=== PATIENT | female | born 1985 | race Caucasian/White ===

== ENCOUNTER 2018-10-06 10:32 | Day surgery (SDC) | payer MEDICAID, SELFPAY ==
[2018-10-05 15:54] LABS: Hematocrit 45.4 % (37-47); Hemoglobin 15.4 g/dl (12.0-15.0); Mean Corp Hgb Conc 33.9 g/gl (32-36); Mean Corpuscular Volume 97.2 fL (81-99); Mean Platelet Vol. 10.1 fl (6.2-12.0); Platelet Count 273 K/mm3 (150-450); RBC Distribution Width CV 13.9 % (11.6-14.6); RBC Distribution Width SD 48.4 fl (35.1-43.9); Red Blood Count 4.67 M/mm3 (4.2-5.4); White Blood Count 9.9 K/mm3 (4.4-11.0)
[2018-10-05 16:01] LABS: Scan Indicated on CBC? Y/N NO
[2018-10-05 16:17] LABS: AST(SGOT) 9 U/L (15-37); Alanine Aminotransfer ALT/SGPT 14 U/L (13-56); Albumin, Serum 3.9 g/dL (3.2-5.0); Alkaline Phosphatase 66 U/L (45-117); Bilirubin, Direct 0.12 mg/dL (0.00-0.30); Globulin 3.3 g/dL (2.2-4.2); Protein, Total 7.2 g/dL (6.4-8.2)
[2018-10-05 16:22] LABS: International Normalized Ratio 1.1; Prothrombin Time (Protime)PT. 14.4 SECONDS (11.7-14.9)
[2018-10-05 16:23] LABS: Partial Thromboplast Time 32.6 Seconds (24.1-36.2)
[2018-10-05 16:25] LABS: Pregnancy, Serum, hCG Quali. NEGATIVE Negative (0-9 Nonpreg)
[2018-10-05 16:32] LABS: Thyroid Stim Hormone (TSH) 0.76 uIU/mL (0.358-3.74)
--- NOTE | 2018-10-05 20:14 | HP.PCM_ITS ---
History and Physical Date of Admission: 10/06/18 Surgical History and Physical Martine Liz, a 33 year old female 3 0 1 0 3, presents for LST with filsche clips and distal salpingectomy; removal Mirena IUD; possible excision of incisional endometriosis; D and C, H/S on October 06, 2018 at 7:30. -- Desires Permanent Sterilization; Incisional Endometriosis; Desires IUD Removal; Abnormal Uterine Bleeding -- Bleeding will either be heavy to moderate like her real period, then the next one will be light and a nuisance. Denies other concerns at this time. AUB every two weeks which began . Martine claims it started suddenly and has been present every 2 weeks. It occurs intermittantly. It is located in the vagina. I t is located in the lower abdomen. Martine characterizes the quality bleeding severity is moderate and not improving. Desires permenent sterilization. MEDICATIONS HISTORY: Patient is also takin. Mirena 20 mcg/24 hr (5 years) intrauterine device, As Directed ALLERGIES: NKDA Infections - Chicken pox Illnesses - none Accidents - None Hospitalizations - Childbirth and see surgery none; Review of Systems: GENERAL - Denies fever, or chills SKIN - Denies skin changes EYES - Denies visual changes EARS - Denies difficulty hearing NOSE - Denies nasal congestion or bleeding MOUTH - Denies sore throat or difficulty swallowing NECK - Denies pain or swelling RESPIRATORY - Denies shortness of breath or wheezing CARDIOVASCULAR - Denies palpitations or chest pain GASTROINTESTINAL - Denies nausea, vomiting, diarrhea, constipation GENITOURINARY - Denies dysuria, frequency of urination, incontinence of urine MUSCULOSKELETAL - Denies joint or muscle pain NEUROLOGICAL - Denies localized numbness or weakness PSYCHIATRIC - Denies depression or anxiety ENDOCRINE - Denies heat or cold intolerance, weight loss or gain HEMATO-IMMUNOLOGIC - Denies excesive bleeding with cuts SOCIAL HISTORY: Alcohol Use - RARELY not while Smoking - used to smoke but quit Diet - moderate, balanced diet and caffeine > 2 drinks per day Lifestyle - moderate stress lifestyle and single Exercise - active work Seat Belt Use - always 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 Father: Asthma. Paternal Grandmother: from pancreatic cancer. MENSTRUAL HISTORY: LMP Known?- DefiniteAmount/Duration - 6 days, Regularity - Irregular, Frequency - every 2 weeks days, LMP - 09/25/18, Age Onset Menarche - 14 PAST PREGNANCIES: Total Pregnancies - 4; Full Term Pregnancies - 3; Premature - 0; Abortions, Induced - 0; Abortions, Spontaneous - 1; Ectopics - 0; Multiple Births - 0; Living Children - 3 SURGICAL HISTORY: 1. 07/24/2011 Primary ; Dr Freda Thomas - [facility] 2. 08/01/2017 ; Alberto Corey M.D. - PHYSICAL EXAM BP- 102/72 Sitting, Right arm, regular cuff Weight- 122.28209 lbs Height- 62.75 inch BMI:21.90 CONSTITUTIONAL - NAD, well nourished, and well developed ABDOMEN - Without hepatosplenomegaly, distention, masses, rebound, or guarding; normal bowel sounds; no hernias and 1.5 cm nodule just superior to incision in left midline NEUROLOGICAL - Cranial nerves II-XII grossly intact PSYCHIATRIC - A and O to time, place, person, mood and affect External Genitial Vagina - non-tender without lesions Urethra/Urethral Meatus - non-tender Bladder - non-tender Vagina - vaginal gross are pink and moist without loss of rugae and no evidence of atropy Cervix - without cervical motion tenderness and has normal size and features without evident lesions and IUD string in place Uterus - 5-6 cm in size, mobile and nontender Adnexa - clear without massess or tenderness ASSESSMENT/PLAN: 1. Encounter For Sterilization Wants MIrena removed and tubal done. Has considered this form of control for quite some time. 2. Irregular Menstrual Cycle Likely secondary to Mirena. Offered superimposing OCPs for several months and pt declines. 3. Endometriosis Nos CT scan confirms. If technically feasible at time of tubal will excise if possible along with LST with filche clips, distal salpingectomy, mirena removal, Dx H/S, and D and C. Discussed RBAs and all questions answered.
[2018-10-06] VITALS (7 sets, daily range): BP systolic 107–134; BP diastolic 69–94; PULSE 58–81; RESP 16; TEMP 36.6–37.1; O2SAT 97–100; BMI 22.5
[2018-10-06 11:01] LABS: Internal QC Validated? YES +Cl - CLEAR BKGD; Pregnancy, Urine Negative Negative
--- NOTE | 2018-10-06 12:00 | EMB_PTH ---
PATIENT: BERNARDO BROWN [place] [facility] [facility] [place][id number] AGE/SX: 33/F ROOM: RE10/06/[address]: Dr. Alberto Corey MD : [id number] BED: DIS: 10/06/2018 SPEC #: [id number] RECD: 10/06/18 16:22 STATUS: PARRIS JARON #: [id number] EDWARD: 10/06/18 12:[address]: Alberto Corey DEPT: SURGICAL PATHOLOGY RECD BY: Reese Correa ENTERED: 10/07/18 08:01 SP TYPE: ENDOM BX/C MING DR: MD Alma Rodas, HOUSE WRECKER-C Tissues: A - Endometrium, NOS B - Fallopian tube Procedures: Surgery Specimen Level II Surgery Specimen Level IV HEADER OPERATION: Laparoscopic BTO, Filshie clips, laparoscopic salpingectomy PRE-OP DIAGNOSIS: Sterilization, irregular menstrual cycle, endometriosis TISSUE SUBMITTED: A - Endometrial curettings, B - Bilateral fallopian tubes MICROSCOPIC DIAGNOSIS A. Endometrium, biopsy: Stromal hyperplasia consistent with exogenous hormonal effect. Rare strips of benign superficial endocervix and benign squamous mucosa. Mild chronic endometritis. B. Right and left fallopian tubes, salpingectomies: Two complete segments of fallopian tubes with no pathologic change. AM:rose 10/10/18 MICROSCOPIC DESCRIPTION Slides are reviewed. GROSS DESCRIPTION A - Received in fixative is one container labeled with the patient's name and designated endometrial curettings. The specimen consists of multiple fragments of hemorrhagic mucoid tissue that in aggregate measure 5 x 3 x 0.2 cm. The entire specimen is submitted in two cassettes. B - Received is one container labeled with the patient's name and designated bilateral fallopian tubes. The specimen consists of bilateral fallopian tubes including fimbrial ends measuring 6 cm in length and 0.5 cm in diameter and 5.5 cm in length and 0.6 cm in diameter. Sections do not reveal any mass lesion. The fallopian tubes are not identified as right or left. Sections reveal unremarkable cut surfaces. Electrical Helper sections are submitted in two cassettes with each cassette containing one fallopian tube. / SHEFALI:rose 10/07/18 TC:5 CPT: 12006, 53135 x2
[2018-10-06] MEDS: Ropivacaine 0.5% 30 ML Vial (15:01)
--- NOTE | 2018-10-06 15:03 | PCM.OPRPT ---
Report of Operation Date of Procedure: 10/06/18 Pre-Operative Diagnosis: Abnormal Uterine Bleeding, Cyclic Lower Pelvic Pain, Desires Permanent Sterilization, Desires Mirena IUD Removal Post-Operative Diagnosis: Abnormal Uterine Bleeding, Cyclic Lower Pelvic Pain, Desires Permanent Sterilization, Desires Mirena IUD Removal, Endometrial Polyps, Adhesions Surgery/Procedure Performed:: Diagnostic Hysteroscopy, Mirena IUD Removal, Dilation and Curettage, Diagnostic Laparoscopy, Bilateral Laparoscopic Distal Salpingectomy With Filshie Clip Placement, Lysis of Dense Adhesions Description of Surgical Findings:: Endometrial cavity with Mirena IUD in place which was removed without difficulty. Multiple 0.25-0.5 cm endometrial polyps present. Cervix which protruded to within 3-4 cm of the vaginal opening which would make robotic assisted vaginal hysterectomy possible. Dense adhesions of the uterus to the anterior abdominal wall and adhesions of the omentum to the right anterior abdominal wall. Normal-appearing fallopian tubes and ovaries except for dense adhesions of left fallopian tube to anterior abdominal wall. Normal upper abdomen. bellows assembler: Alma Daley Type of Anesthesia:: General Anesthesiologist: Joseph Corey Specimen's removed: Endometrial curettings, bilateral distal fallopian tubes Drains: None Estimated Blood Loss (mL): Minimal Fluids Replaced: Crystalloid Description of Procedure: Indications: This is a 33 year old patient who has the above diagnosis. She has considered sterilization for quite some time. She is aware of the permanent nature of the procedure, the failure rate of 1-2%, and the availability of other nonpermanent control options. She also understands that there is no guarantee that a D&C will relieve her of the bleeding problems that she has been having in there there is no guarantee that this procedure will help with the pain that she has been having. All questions were answered to reconsider the patient well-informed. Procedure: The patient was taken to the operating room where after induction of general anesthesia, she was placed in the dorsolithotomy position and prepped and draped in the usual sterile fashion. The bladder was drained of approximately 50 cc of clear yellow urine with a catheter. Anterior cervix was grasped with the tenaculum and dilated to about 4-5 mm. A 3 mm hysteroscope was placed in the uterus of the above findings were noted and Mirena IUD removed. Cervix was dilated to about 7-8 mm and uterus was gently curetted removing all contents. Hysteroscope was reinserted and all material was noted to be removed. In the course of the procedure approximately 150 cc of saline distending media was used and virtually all of this was recovered. Conn cannula was placed and attention was turned toward the laparoscopic portion of the procedure. Approximately 25 cc of half percent ropivacaine was injected subumbilically, suprapubically and approximately 10 cm left of the umbilicus. A 5 mm bladeless trocar was placed subumbilically and intraperitoneal placement confirmed. After CO2 insufflation was complete, a 5 mm bladeless trocar was introduced approximately 10 cm left of the umbilicus due to dense adhesions between the uterus and anterior abdominal wall. The above findings were noted and the adhesions were taken down with the Enseal device and the serosal surface of the uterus cauterized with monopolar cautery at a setting of 35 W coagulation. A 7/8 mm port was then placed suprapubically. Each fallopian tube was identified to its fimbriated end and an Enseal device was used to divide the mesosalpinx leaving approximately 1 cm stump of fallopian tube on each side. Filshie clips were placed on the stump of each fallopian tube. The peritoneal cavity and upper abdomen were examined and noted to be normal. FloSeal was used to help with postoperative hemostasis over the surface of the uterus after copiously irrigating the pelvis and uterus and confirming hemostasis. Photographs were taken. Laparoscopic instruments with as much CO2 gas as possible were removed and incisions were closed with interrupted 4-0 Monocryl suture. Steri-Strips were placed across the incision. Patient tolerated procedure well was taken to recovery room in satisfactory condition sponge instrument and needle counts were all reportedly correct. Estimated blood loss for the case was minimal. Specimens to pathology was endometrial curettings, bilateral distal fallopian tubes. Grafts/Implants Used: None - Complications None - Admit VTE Documentation VTE Present on Admission: Yes VTE Mechan Device Prophylaxis: SCD's VTE Pharm Prophylaxis ordered?: No Reason prophylaxis not ordered:: Treatment Not Indicated
--- NOTE | 2018-10-06 15:17 | PCM.DC.TUB ---
Discharge Diet: No Restrictions - Increase fluid intake for the next 48 hours. Discharge Activity: Return to Normal Activity, May Drive - when you are no longer taking pain/narcotic medicines., May Shower, May Take a Tub Bath May resume sexual activity in: 3 weeks Additional Activity Instructions:: Ambulate often the next week after surgery. Nothing in the vagina for 5 days. Call your doctor if your incision/area has: Continuous Slow Oozing, Sudden Increased Bleeding, Increased Pain/ Swelling, Increased Redness, Foul Smelling Discharge Call your doctor if you observe: Fever of 101 or Higher, Inability to urinate, Inability to have a bowel movement, Using more than one pad per hour Allergies/Adverse Reactions: Allergies No Known Allergies Allergy (Verified 09/28/18 09:35) Medications to take at Discharge Oxycodone [Oxyir] 5 mg PO Q6H PRN PRN 7 Days #14 tab 10/06/18 The following prescriptions were given: Oxycodone [Oxyir] 5 mg PO Q6H PRN PRN 7 Days #14 tab PRN Reason: Severe Pain (6-10/10) Orders to be completed after discharge: Type & Screen Time Frame: 10/05/18, Location: None Selected Primary Care Physician: Alma Perez NP-C [Primary Care Provider] - Test Results: Test results from this visit will be discussed in further detail at your follow-up appointment, if applicable. Please Follow Up With: Alberto Corey MD - [phone] When: 2-3 weeks
--- OUTSIDE RECORDS SUMMARY | 2018-12-01 12:37 | XMS RPT_ITS ---
:1985 External Reference #:[id number] Author Organization OHIP Care Team Providers Name Role Phone SHEETS, ILAD Attending Unavailable SHEETS, ILDA Primary Care Unavailable Alberto Corey Attending Unavailable Alberto Corey Referring Unavailable Bharti Avitia Primary Care Unavailable Damir Constantino Consulting Unavailable SOFIA LOUIS Attending Unavailable BHARTI AVITIA ([facility]) Referring Unavailable PROBLEMS PROBLEMS DATE TYPE CONDITION / CODE ATTENDING STATUS SOURCE 10/06/2018 Unknown Z01.818 - Encounter Alberto Corey for other [facility] preprocedural Hospital examination / Repository Z01.818(ICD-10) 10/06/2018 Unknown G89.18 - Other acute Alberto Corey Active [place] postprocedural pain [facility] / G89.18(ICD-10) Hospital Repository PROCEDURES PROCEDURES No Procedure Records FoundRESULTS RESULTS DISCHARGE INSTRUCTION Observed: 10/06/2018 Status: F Source: [place] 3:18 PM [facility] REPOSITORY [facility] Medical Records Department [address] [place] [address] Instructions for Home/Discharge Instructions 10/06/18 1517 MR#: [id number] Acct: [id number] Name: BERNARDO LIZ Rep #: [id number] : 1985 33 From: Alberto Corey MD PCP: MICHAELA MyrickC Status: [facility] [place] Diet: No Restrictions - Increase fluid intake for the next 48 hours. Discharge Activity: Return to Normal Activity, May Drive - when you are no longer taking pain/narcotic medicines., May Shower, May Take a Tub Bath May resume sexual activity in: 3 weeks Additional Activity Instructions:: Ambulate often the next week after surgery. Nothing in the vagina for 5 days. Call your doctor if your incision/area has: Continuous Slow Oozing, Sudden Increased Bleeding, Increased Pain/ Swelling, Increased Redness, Foul Smelling Discharge Call your doctor if you observe: Fever of 101 or Higher, Inability to urinate, Inability to have a bowel movement, Using more than one pad per hour Allergies/Adverse Reactions: Allergies No Known Allergies Allergy (Verified 09/28/18 09:35) Medications to take at Discharge Oxycodone [Oxyir] 5 mg PO Q6H PRN PRN 7 Days #14 tab 10/06/18 The following prescriptions were given: Oxycodone [Oxyir] 5 mg PO Q6H PRN PRN 7 Days #14 tab PRN Reason: Severe Pain (6-10/10) Orders to be completed after discharge: Type AND Screen Time Frame: 10/05/18, Location: None Selected Primary Care Physician: Bharti Avitia NP-C [Primary Care Provider] - Test Results: Test results from this visit will be discussed in further detail at your follow-up appointment, if applicable. Please Follow Up With: Alberto Corey MD - [phone] When: 2-3 weeks 10/06/18 1518 <Electronically signed by Alberto Corey MD> Date Alberto Corey MD CC: RANDI Avitia; Damir Constantino MD OPERATIVE REPORT Observed: 10/06/2018 Status: F Source: [place] 3:17 PM [facility] REPOSITORY [facility] Medical Records Department [address] [place] [address] Operative Report 10/06/18 1503 MR#: [id number] Acct: [id number] Name: BERNARDO LIZ Rep #: [id number] : 1985 33 From: Alberto Corey MD PCP: Bharti Avitia EMERGENCY MAN-C Status: REG [facility] Y Location: [place] [address] Report of Operation Date of Procedure: 10/06/18 Pre-Operative Diagnosis: Abnormal Uterine Bleeding, Cyclic Lower Pelvic Pain, Desires Permanent Sterilization, Desires Mirena IUD Removal Post-Operative Diagnosis: Abnormal Uterine Bleeding, Cyclic Lower Pelvic Pain, Desires Permanent Sterilization, Desires Mirena IUD Removal, Endometrial Polyps, Adhesions Surgery/Procedure Performed:: Diagnostic Hysteroscopy, Mirena IUD Removal, Dilation and Curettage, Diagnostic Laparoscopy, Bilateral Laparoscopic Distal Salpingectomy With Filshie Clip Placement, Lysis of Dense Adhesions Description of Surgical Findings:: Endometrial cavity with Mirena IUD in place which was removed without difficulty. Multiple 0.25-0.5 cm endometrial polyps present. Cervix which protruded to within 3-4 cm of the vaginal opening which would make robotic assisted vaginal hysterectomy possible. Dense adhesions of the uterus to the anterior abdominal wall and adhesions of the omentum to the right anterior abdominal wall. Normal-appearing fallopian tubes and ovaries except for dense adhesions of left fallopian tube to anterior abdominal wall. Normal upper abdomen. supervisor carton and can supply: Bharti Daley Type of Anesthesia:: General Anesthesiologist: Joseph Corey Specimen's removed: Endometrial curettings, bilateral distal fallopian tubes Drains: None Estimated Blood Loss (mL): Minimal Fluids Replaced: Crystalloid Description of Procedure: Indications: This is a 33 year old patient who has the above diagnosis. She has considered sterilization for quite some time. She is aware of the permanent nature of the procedure, the failure rate of 1-2%, and the availability of other nonpermanent control options. She also understands that there is no guarantee that a D AND C will relieve her of the bleeding problems that she has been having in there there is no guarantee that this procedure will help with the pain that she has been having. All questions were answered to reconsider the patient well-informed. Procedure: The patient was taken to the operating room where after induction of general anesthesia, she was placed in the dorsolithotomy position and prepped and draped in the usual sterile fashion. The bladder was drained of approximately 50 cc of clear yellow urine with a catheter. Anterior cervix was grasped with the tenaculum and dilated to about 4-5 mm. A 3 mm hysteroscope was placed in the uterus of the above findings were noted and Mirena IUD removed. Cervix was dilated to about 7-8 mm and uterus was gently curetted removing all contents. Hysteroscope was reinserted and all material was noted to be removed. In the course of the procedure approximately 150 cc of saline distending media was used and virtually all of this was recovered. Conn cannula was placed and attention was turned toward the laparoscopic portion of the procedure. Approximately 25 cc of half percent ropivacaine was injected subumbilically, suprapubically and approximately 10 cm left of the umbilicus. A 5 mm bladeless trocar was placed subumbilically and intraperitoneal placement confirmed. After CO2 insufflation was complete, a 5 mm bladeless trocar was introduced approximately 10 cm left of the umbilicus due to dense adhesions between the uterus and anterior abdominal wall. The above findings were noted and the adhesions were taken down with the Enseal device and the serosal surface of the uterus cauterized with monopolar cautery at a setting of 35 W coagulation. A 7/8 mm port was then placed suprapubically. Each fallopian tube was identified to its fimbriated end and an Enseal device was used to divide the mesosalpinx leaving approximately 1 cm stump of fallopian tube on each side. Filshie clips were placed on the stump of each fallopian tube. The peritoneal cavity and upper abdomen were examined and noted to be normal. FloSeal was used to help with postoperative hemostasis over the surface of the uterus after copiously irrigating the pelvis and uterus and confirming hemostasis. Photographs were taken. Laparoscopic instruments with as much CO2 gas as possible were removed and incisions were closed with interrupted 4-0 Monocryl suture. Steri-Strips were placed across the incision. Patient tolerated procedure well was taken to recovery room in satisfactory condition sponge instrument and needle counts were all reportedly correct. Estimated blood loss for the case was minimal. Specimens to pathology was endometrial curettings, bilateral distal fallopian tubes. Grafts/Implants Used: None - Complications None - Admit VTE Documentation VTE Present on Admission: Yes VTE Mechan Device Prophylaxis: SCD's VTE Pharm Prophylaxis ordered?: No Reason prophylaxis not ordered:: Treatment Not Indicated 10/06/18 3682 <Electronically signed by Alberto Corey MD> Date Alberto Corey MD CC: EMERGENCY MAN-C Bharti Avitia; Damir Constantino MD; Alberto Corey MD Signed ENDOMETRIAL BX/CURETTINGS Observed: 10/06/2018 Status: F Source: [place] 12:00 PM [facility] REPOSITORY Patient: BERNARDO LIZ : 1985 (33/F) Acct Num: [id number] Phys: Madhav PRATHER,Alberto Unit Num: [id number] [place]: [facility] Specimen: [id number] Received: 10/06/18 - 2 Spec Type: ENDOM BX/C TISSUES 1 TISSUES: A. Endometrium, NOS B. Fallopian tube GROSS DESCRIPTION A - Received in fixative is one container labeled with the patient's name and designated endometrial curettings. The specimen consists of multiple fragments of hemorrhagic mucoid tissue that in aggregate measure 5 x 3 x 0.2 cm. The entire specimen is submitted in two cassettes. B - Received is one container labeled with the patient's name and designated bilateral fallopian tubes. The specimen consists of bilateral fallopian tubes including fimbrial ends measuring 6 cm in length and 0.5 cm in diameter and 5.5 cm in length and 0.6 cm in diameter. Sections do not reveal any mass lesion. The fallopian tubes are not identified as right or left. Sections reveal unremarkable cut surfaces. Transfer Car Operator Drier sections are submitted in two cassettes with each cassette containing one fallopian tube. / SJ:rose 10/07/18 TC:5 CPT: 59401, 92804 x2 HEADER OPERATION: Laparoscopic BTO, Filshie clips, laparoscopic salpingectomy PRE-OP DIAGNOSIS: Sterilization, irregular menstrual cycle, endometriosis TISSUE SUBMITTED: A - Endometrial curettings, B - Bilateral fallopian tubes MICROSCOPIC DESCRIPTION Slides are reviewed. MICROSCOPIC DIAGNOSIS A. Endometrium, biopsy: Stromal hyperplasia consistent with exogenous hormonal effect. Rare strips of benign superficial endocervix and benign squamous mucosa. Mild chronic endometritis. B. Right and left fallopian tubes, salpingectomies: Two complete segments of fallopian tubes with no pathologic change. AM:rose 10/10/18 Signed [facility] 10/10/18 <signature on file> Performed By: #### PEMB #### [facility] [address] [place], [address] ,URINE Collected: 10/06/2018 Status: F Source: [place] 10:56 AM [facility] REPOSITORY Order Comment: Reason for Laboratory Test PRE OP TYPE CODE TESTS RESULT OUT OF REFERENCE UNITS RANGE LAB L400.8000 Negative Normal HCGUQUAL Negative Result Comment: Very dilute urine specimens, as indicated by a low specific gravity, may not contain medical device sales representative levels of hCG. If is still suspected, a first morning urine specimen should be collected 48 hours later and tested. Performed By: #### L400.7600 #### [facility] [address] [place], [address] HISTORY AND PHYSICAL Observed: 10/05/2018 Status: F Source: [place] EXAM 8:14 PM [facility] REPOSITORY [facility] Medical Records Department [address] [place] [address] [place] [address] History and Physical 10/05/182011 MR#: [id number] Acct: [id number] Name: BERNARDO LIZ Rep #: [id number] : 1985 33 From: Alberto Corey MD PCP: RANDI Myrick Status: [facility] [place] Location: [facility] History and Physical Date of Admission: 10/06/18 Surgical History and Physical Bernardo Liz, a 33 year old female 3 0 1 0 3, presents for LST with filsche clips and distal salpingectomy; removal Mirena IUD; possible excision of incisional endometriosis; D and C, H/S on October 06, 2018 at 7:30. -- Desires Permanent Sterilization; Incisional Endometriosis; Desires IUD Removal; Abnormal Uterine Bleeding -- Bleeding will either be heavy to moderate like her real period, then the next one will be light and a nuisance. Denies other concerns at this time. AUB every two weeks which began . Bernardo claims it started suddenly and has been present every 2 weeks. It occurs intermittantly. It is located in the vagina. It is located in the lower abdomen. Bernardo characterizes the quality bleeding severity is moderate and not improving. Desires permenent sterilization. MEDICATIONS HISTORY: Patient is also takin. Mirena 20 mcg/24 hr (5 years) intrauterine device, As Directed ALLERGIES: NKDA Infections - Chicken pox Illnesses - none Accidents - None Hospitalizations - Childbirth and see surgery none; Review of Systems: GENERAL - Denies fever, or chills SKIN - Denies skin changes EYES - Denies visual changes EARS - Denies difficulty hearing NOSE - Denies nasal congestion or bleeding MOUTH - Denies sore throat or difficulty swallowing NECK - Denies pain or swelling RESPIRATORY - Denies shortness of breath or wheezing CARDIOVASCULAR - Denies palpitations or chest pain GASTROINTESTINAL - Denies nausea, vomiting, diarrhea, constipation GENITOURINARY - Denies dysuria, frequency of urination, incontinence of urine MUSCULOSKELETAL - Denies joint or muscle pain NEUROLOGICAL - Denies localized numbness or weakness PSYCHIATRIC - Denies depression or anxiety ENDOCRINE - Denies heat or cold intolerance, weight loss or gain HEMATO-IMMUNOLOGIC - Denies excesive bleeding with cuts SOCIAL HISTORY: Alcohol Use - RARELY not while Smoking - used to smoke but quit Diet - moderate, balanced diet and caffeine > 2 drinks per day Lifestyle - moderate stress lifestyle and single Exercise - active work Seat Belt Use - always 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 Father: Asthma. Paternal Grandmother: from pancreatic cancer. MENSTRUAL HISTORY: LMP Known?- DefiniteAmount/Duration - 6 days, Regularity - Irregular, Frequency - every 2 weeks days, LMP - 09/25/18, Age Onset Menarche - 14 PAST PREGNANCIES: Total Pregnancies - 4; Full Term Pregnancies - 3; Premature - 0; Abortions, Induced - 0; Abortions, Spontaneous - 1; Ectopics - 0; Multiple Births - 0; Living Children - 3 SURGICAL HISTORY: 1. 07/24/2011 Primary ; Dr Freda Thomas - breech 2. 08/01/2017 ; Alberto Corey M.D. - PHYSICAL EXAM BP- 102/72 Sitting, Right arm, regular cuff Weight- 122.54667 lbs Height- 62.75 inch BMI:21.90 CONSTITUTIONAL - NAD, well nourished, and well developed ABDOMEN - Without hepatosplenomegaly, distention, masses, rebound, or guarding; normal bowel sounds; no hernias and 1.5 cm nodule just superior to incision in left midline NEUROLOGICAL - Cranial nerves II-XII grossly intact PSYCHIATRIC - A and O to time, place, person, mood and affect External Genitial Vagina - non-tender without lesions Urethra/Urethral Meatus - non-tender Bladder - non-tender Vagina - vaginal gross are pink and moist without loss of rugae and no evidence of atropy Cervix - without cervical motion tenderness and has normal size and features without evident lesions and IUD string in place Uterus - 5-6 cm in size, mobile and nontender Adnexa - clear without massess or tenderness ASSESSMENT/PLAN: 1. Encounter For Sterilization Wants MIrena removed and tubal done. Has considered this form of control for quite some time. 2. Irregular Menstrual Cycle Likely secondary to Mirena. Offered superimposing OCPs for several months and pt declines. 3. Endometriosis Nos CT scan confirms. If technically feasible at time of tubal will excise if possible along with LST with filche clips, distal salpingectomy, mirena removal, Dx H/S, and D and C. Discussed RBAs and all questions answered. 10/05/182013 <Electronically signed by Alberto Corey MD> Date Alberto Corey MD Cosigner Signature: Date (if applicable) CC: EMERGENCY MAN-Yas Avitia; Alberto Corey MD Signed TYPE AND SCREEN Collected: 10/05/2018 Status: F Source: [place] 2:06 PM [facility] REPOSITORY Order Comment: Surgery Date: 10/06/18 Hx of Preganancy in last 3 Months No Ever experience any problems with transfusion(s)? N Hx of Transfusion in last 3 Months N Reason for Type AND Screen/Red Cells: SURGERY SURGICAL PROCEDURE: 47121 98957 68730 TYPE CODE TESTS RESULT OUT OF RANGE REFERENCE UNITS LAB B10.0800 O Normal BLOOD TYPE GEL POSITIVE LAB B100.4000 Normal Antibody NEGATIVE Screen Performed By: #### B101.7475 #### [facility] [address] [place], [place], [id number] CBC-COMPLETE BLOOD CNT Collected: 10/05/2018 Status: F Source: [place] NO DIFF 11:45 AM [facility] REPOSITORY Order Comment: Reason for Laboratory Test PRE OP TYPE CODE TESTS RESULT OUT OF RANGE REFERENCE UNITS LAB L100.1000 4.4-11.0 K/mm3 Normal WBC 9.9 LAB L100.1200 4.2-5.4 M/mm3 Normal RBC 4.67 LAB L100.1300 12.0-15.0 g/dl High HGB 15.4 LAB L100.1400 37-47 % Normal HCT 45.4 LAB L100.1500 81-99 fL Normal MCV 97.2 LAB L100.1600 27.0-32.0 pg High MCH 33.0 LAB L100.1700 32-36 g/gl Normal MCHC 33.9 LAB L100.1810 11.6-14.6 % Normal RDW CV 13.9 LAB L100.1820 35.1-43.9 fl High RDW SD 48.4 LAB L100.1900 150-450 K/mm3 Normal PLT 273 LAB L100.2000 6.2-12.0 fl Normal MPV 10.1 Performed By: #### L100.0500 #### [facility] [address] [place], [place], [id number] LIVER PROFILE Collected: 10/05/2018 Status: F Source: [place] 11:45 AM [facility] REPOSITORY Order Comment: Reason for Laboratory Test PRE OP TYPE CODE TESTS RESULT OUT OF RANGE REFERENCE UNITS LAB L501.1500 6.4-8.2 g/dL Normal T PROT 7.2 LAB L501.1800 3.2-5.0 g/dL Normal ALB 3.9 LAB L501.1950 2.2-4.2 g/dL Normal GLOB 3.3 LAB L501.4100 15-37 U/L Low AST 9 LAB L501.4305 45-117 U/L Normal ALK P 66 LAB L501.4405 13-56 U/L Normal ALT 14 LAB L501.4600 0.20-1.00 mg/dL Normal T BILI 0.40 LAB L501.4700 0.00-0.30 mg/dL Normal D BILI 0.12 Performed By: #### L500.3400 #### [facility] [address] [facility] [place], [place], [address] ,SERUM,HCG QUALI. Collected: Status: F Source: [place] 10/05/2018 11:45 AM [facility] REPOSITORY Order Comment: Reason for Laboratory Test PRE OP TYPE CODE TESTS RESULT OUT OF REFERENCE UNITS RANGE LAB L700.7000 0-9 Nonpreg Negative Normal HCGSQUAL NEGATIVE LAB L700.6700 =>Qualitative mIU/mL Normal HCG Qual < 1 triggr Performed By: #### L700.6800 #### [facility] [address] [facility]. [place], [place], [id number] PROTHROMBIN TIME W/INR Collected: 10/05/2018 Status: F Source: [place] 11:45 AM [facility] REPOSITORY Order Comment: Reason for Laboratory Test PRE OP TYPE CODE TESTS RESULT OUT OF RANGE REFERENCE UNITS LAB L300.4150 11.7-14.9 SECONDS Normal PROTIME 14.4 LAB L300.4200 Normal INR 1.1 Performed By: #### L300.3900, L300.4310 #### [facility] [address] [facility]. [place], [place], [id number] PARTIAL THROMBOPLAST Collected: 10/05/2018 Status: F Source: [place] TIME 11:45 AM [facility] REPOSITORY Order Comment: Reason for Laboratory Test PRE OP TYPE CODE TESTS RESULT OUT OF RANGE REFERENCE UNITS LAB L300.4310 24.1-36.2 Seconds Normal PTT 32.6 Performed By: #### L300.3900, L300.4310 #### [place] [facility] [address] [place], [address] THYROID STIM HORMONE Collected: 10/05/2018 Status: F Source: [place] (TSH) 11:45 AM [facility] REPOSITORY Order Comment: Reason for Laboratory Test PRE OP TYPE CODE TESTS RESULT OUT OF RANGE REFERENCE UNITS LAB L501.9520 0.358-3.74 uIU/mL Normal TSH 0.76 Performed By: #### L501.9520 #### [place] [facility] [address] [place], [address] PROGRESS Observed: 08/06/2018 Status: COMPLETED Source: [place] 9:10 AM [facility] REPOSITORY HNO ID: [id number] Author: Eileen Luke Service: (none) Author Type: Nurse Practitioner Type: Progress Notes Filed: 08/06/2018 9:35 AM Note Text: Subjective The history is provided by the patient. No foreign languages department chair was used. URI She complains of cough. There is no shortness of breath, sputum production or wheezing. This is a new problem. The current episode started in the past 7 days (Wednesday- 3 days ago ). The problem occurs constantly. The problem has been unchanged. The cough is non-productive. Associated symptoms include a fever (100.7 today only ), nasal congestion, rhinorrhea and a sore throat. Pertinent negatives include no ear congestion, ear pain or headaches. Associated symptoms comments: + sick contacts- daughter strep + . Her symptoms are alleviated by nothing. Risk factors for lung disease include smoking/tobacco exposure. There is no history of asthma or COPD. Review of Systems Constitutional: Positive for fever (100.7 today only ). HENT: Positive for rhinorrhea and sore throat. Negative for ear pain. Respiratory: Positive for cough. Negative for sputum production, shortness of breath and wheezing. Neurological: Negative for headaches. HISTORIES PAST MEDICAL HISTORY Diagnosis Date - Acute left otitis media Resolved. - Acute pharyngitis - Cough - Croup Prednisone - Dysuria - Otalgia Resolved. - Other injury of extensor muscle, fascia and tendon of left ring finger at wrist and hand level, subsequent encounter - Pain in left finger(s) - Pain in throat - Upper respiratory infection - Urinary tract infectious disease PAST SURGICAL HISTORY Procedure Laterality Date - SECTION HX 2010 AND 2016 - REPAIR FINGER/HAND TENDON Left 2002 Repair hand tendon, left hand - TONSILLECTOMY HX 1989 FAMILY HISTORY Problem Relation Age of Onset - Breast Cancer Maternal Grandmother - Breast Cancer Maternal Aunt Social History Marital status: Single Spouse name: Years of education: Number of children: Social History Main Topics Smoking status: Current Every Day Smoker Packs/day: 0.00 Years: 0.00 Smokeless tobacco: Never Used Comment: Current smoker; Smoking details Type: cigarette; Pattern of use: Every day smoker; Tobacco reviewed with patient 10/15/2015 Alcohol use: No Drug use: No Other Topics Concern Caffeine Concern Yes Comment:Type: coffee; Amount: minimal (equiv to < 1 8oz coffee/day) No current outpatient prescriptions on file prior to visit. No current facility-administered medications on file prior to visit. ALLERGIES No Known Allergies PAP EVERY 5 YEARS due on 2015 HPV EVERY 5 YEARS due on 2015 INFLUENZA(1) due on 07/09/2018 Objective Physical Exam Constitutional: She is oriented to person, place, and time and well-developed, well-nourished, and in no distress. Vital signs are normal. BP 111/79 Pulse 98 Temp 36.8 ?C (98.3 ?F) (Tympanic) Resp 16 LMP 07/26/2018 (Exact Date) SpO2 98% ? Unknown HENT: Head: Normocephalic. Right Ear: Tympanic membrane, external ear and ear canal normal. Left Ear: Tympanic membrane, external ear and ear canal normal. Nose: Mucosal edema present. Mouth/Throat: Uvula is midline and mucous membranes are normal. Posterior oropharyngeal erythema present. No oropharyngeal exudate, posterior oropharyngeal edema or tonsillar abscesses. Cardiovascular: Normal rate and regular rhythm. Pulmonary/Chest: Effort normal and breath sounds normal. + dry cough noted Lymphadenopathy: She has no cervical adenopathy. Neurological: She is oriented to person, place, and time. Component Latest Ref Rng AND Units 08/06/2018 Rapid Strep neg - pos negative Quality Check yes/no Yes ASSESSMENT/PLAN: 1. Acute upper respiratory infection - ICD9: 465.9, ICD10: J06.9 (primary diagnosis) - Discussed viral etiology and rationale for treatment. - Symptomatic treatment with prn analgesia - Supportive care with fluids and rest - PREDNISONE 20 MG TABLET - BENZONATATE 100 MG CAPSULE - work note written 2. Acute pharyngitis, unspecified etiology - ICD9: 462, ICD10: J02.9 - Rapid Strep negative in the office today - Discussed supportive care treatment with fluids, rest and analgesia. - RAPID STREP TEST B/O- negative - PREDNISONE 20 MG TABLET -pt education along with discharge instructions given to pt -pt agreeable with plan -follow-up if symptoms don't improve in 3-5 days or get worse Eileen Luke APRN.[facility] CNOV Observed: 08/06/2018 Status: COMPLETED Source: [place] 8:55 AM [facility] REPOSITORY Office Visit ([facility]) BERNARDO LIZ ([id number]) 1985 F Date Time Provider Department 08/06/18 8:55 AM EILEEN LUKE ([facility]) [facility] During your visit today, we recorded the following information about you: Temperature Pulse Respiration Blood pressure 98.3 degrees 98/minute 16/minute 111/79 Last Period 07/26/18 [facility] 08/06/2018 9:05 AM Addendum If your symptoms continue or are worsening, please contact your Primary Care Provider for a follow up appointment. Thank you Home going instructions for Upper Respiratory Infections In General: - Drink lots of fluids - at least one gallon of non-caffeinated liquids per day - Make sure you are eating well - Get plenty of rest - at least 8 hours of sleep per night for adults - ibuprofen 600mg every 8 hours as needed for discomfort - acetaminophen 500mg every 4-6 hours as needed for fever and discomfort. - may alternate ibuprofen and acetaminophen For nasal congestion try: -Vaporizers, Neti Pot, humidifiers, hot showers, and hot fluids help open respiratory and sinus passages. - Puako Nasal Azle may offer relief of nasal and head congestion 2-3 times per day as needed. - Sudafed is a safe and effective decongestant for people who do not have high blood pressure. Do not take Sudafed if you have ever been told that you have high blood pressure or hypertension. General dosing guidelines: Immediate release: 60 mg every 4-6 hours; Extended release: 120 mg every 12 hours or 240 mg every 24 hours; maximum: 240 mg/24 hours. For Sore Throat try: - Salt water gargles every 2-3 hours as needed for discomfort - Chloraceptic spray or throat lozenges (Cepacol) For Cough and chest congestion try one of the following: - Mucinex or Robitussin are expectorants. You may take 200- 400 mg every 4 hours to a not to exceed 2,400 mg/day OR Extended release tablet: 600-1200 mg every 12 hours, not to exceed 2,400 mg/day - Delsym is a cough suppressant: Oral: 10-20 mg every 4 hours or 30 mg every 6-8 hours OR Extended release: 60 mg twice daily; maximum: 120 mg/day - If you have high blood pressure or hypertension it is safe to take Coricidin? HBP Cough AND Cold. If you smoke it is advised that you quit smoking. CONTACT YOUR DOCTOR IF: 1. You have fevers for longer than five days or a fever more than 102 degrees 2. You are still sick after 10 days 3. After several days you are getting worse rather than better 4. You develop nausea, vomiting, diarrhea, or a rash. Go to the ER if you - experience pressure or pain in your chest - experience difficulty swallowing - experience difficulty breathing Follow up with your physician in 5-7 days or before if your symptoms get worse. Thank you for coming to [facility] today. I appreciate your confidence in choosing the [facility] for your medical care. Eileen Luke APRN.[facility] [id number] [facility] [phone] Eileen Luke APRN.CNP 08/06/2018 9:35 AM Signed Subjective The history is provided by the patient. No foreign languages department chair was used. URI She complains of cough. There is no shortness of breath, sputum production or wheezing. This is a new problem. The current episode started in the past 7 days (Wednesday- 3 days ago ). The problem occurs constantly. The problem has been unchanged. The cough is non-productive. Associated symptoms include a fever (100.7 today only ), nasal congestion, rhinorrhea and a sore throat. Pertinent negatives include no ear congestion, ear pain or headaches. Associated symptoms comments: + sick contacts- daughter strep + . Her symptoms are alleviated by nothing. Risk factors for lung disease include smoking/tobacco exposure. There is no history of asthma or COPD. Review of Systems Constitutional: Positive for fever (100.7 today only ). HENT: Positive for rhinorrhea and sore throat. Negative for ear pain. Respiratory: Positive for cough. Negative for sputum production, shortness of breath and wheezing. Neurological: Negative for headaches. HISTORIES PAST MEDICAL HISTORY Diagnosis Date - Acute left otitis media Resolved. - Acute pharyngitis - Cough - Croup Prednisone - Dysuria - Otalgia Resolved. - Other injury of extensor muscle, fascia and tendon of left ring finger at wrist and hand level, subsequent encounter - Pain in left finger(s) - Pain in throat - Upper respiratory infection - Urinary tract infectious disease PAST SURGICAL HISTORY Procedure Laterality Date - SECTION HX 2010 AND 2016 - REPAIR FINGER/HAND TENDON Left 2002 Repair hand tendon, left hand - TONSILLECTOMY HX 1989 FAMILY HISTORY Problem Relation Age of Onset - Breast Cancer Maternal Grandmother - Breast Cancer Maternal Aunt Social History Marital status: Single Spouse name: Years of education: Number of children: Social History Main Topics Smoking status: Current Every Day Smoker Packs/day: 0.00 Years: 0.00 Smokeless tobacco: Never Used Comment: Current smoker; Smoking details Type: cigarette; Pattern of use: Every day smoker; Tobacco reviewed with patient 10/15/2015 Alcohol use: No Drug use: No Other Topics Concern Caffeine Concern Yes Comment:Type: coffee; Amount: minimal (equiv to < 1 8oz coffee/day) No current outpatient prescriptions on file prior to visit. No current facility-administered medications on file prior to visit. ALLERGIES No Known Allergies PAP EVERY 5 YEARS due on 2015 HPV EVERY 5 YEARS due on 2015 INFLUENZA(1) due on 07/09/2018 Objective Physical Exam Constitutional: She is oriented to person, place, and time and well-developed, well-nourished, and in no distress. Vital signs are normal. BP 111/79 Pulse 98 Temp 36.8 ?C (98.3 ?F) (Tympanic) Resp 16 LMP 07/26/2018 (Exact Date) SpO2 98% ? Unknown HENT: Head: Normocephalic. Right Ear: Tympanic membrane, external ear and ear canal normal. Left Ear: Tympanic membrane, external ear and ear canal normal. Nose: Mucosal edema present. Mouth/Throat: Uvula is midline and mucous membranes are normal. Posterior oropharyngeal erythema present. No oropharyngeal exudate, posterior oropharyngeal edema or tonsillar abscesses. Cardiovascular: Normal rate and regular rhythm. Pulmonary/Chest: Effort normal and breath sounds normal. + dry cough noted Lymphadenopathy: She has no cervical adenopathy. Neurological: She is oriented to person, place, and time. Component Latest Ref Rng AND Units 08/06/2018 Rapid Strep neg - pos negative Quality Check yes/no Yes ASSESSMENT/PLAN: 1. Acute upper respiratory infection - ICD9: 465.9, ICD10: J06.9 (primary diagnosis) - Discussed viral etiology and rationale for treatment. - Symptomatic treatment with prn analgesia - Supportive care with fluids and rest - PREDNISONE 20 MG TABLET - BENZONATATE 100 MG CAPSULE - work note written 2. Acute pharyngitis, unspecified etiology - ICD9: 462, ICD10: J02.9 - Rapid Strep negative in the office today - Discussed supportive care treatment with fluids, rest and analgesia. - RAPID STREP TEST B/O- negative - PREDNISONE 20 MG TABLET -pt education along with discharge instructions given to pt -pt agreeable with plan -follow-up if symptoms don't improve in 3-5 days or get worse Eileen Luke APRN.DIGITAL MEDIA STRATEGIST Referring Provider: SELF [[id number]] Allergies As of Date: 08/06/2018 (No Known Allergies) Date Reviewed: 08/06/2018 Reviewed by: Mercy Butler - Fully Assessed Reason for Visit: Cough [28] Cmt: 3 days non productive cough chest congestion sore throat runny nose stuffy nose Primary Visit Diagnosis:Acute upper respiratory infection [J06.9] Other Visit Diagnosis:Acute pharyngitis, unspecified etiology [J02.9] Order(s):RAPID STREP TEST B/O [[id number]] Order #: [id number] predniSONE (DELTASONE) 20 mg tabletTake 2 tablets by mouth once daily for 4 days.Disp: 8 tabletRfl: 0 benzonatate (TESSALON PERLE) 100 mg capsuleTake 1 capsule by mouth three times daily as needed.Disp: 15 capsuleRfl: 0 Prescriptions as of 08/06/2018 Sig: PREDNISONE 20 MG TABLET Take 2 tablets by mouth once * BENZONATATE 100 MG CAPSULE Take 1 capsule by mouth three* Problem List As Of Date 08/06/2018 Noted Resolved Posture abnormality [R29.3] INVALID FOR* Acute low back pain with left-sided sciatica [M*INVALID FOR* Other instructions from your clinician: If your symptoms continue or are worsening, please contact your Primary Care Provider for a follow up appointment. Thank you Home going instructions for Upper Respiratory Infections In General: - Drink lots of fluids - at least one gallon of non-caffeinated liquids per day - Make sure you are eating well - Get plenty of rest - at least 8 hours of sleep per night for adults - ibuprofen 600mg every 8 hours as needed for discomfort - acetaminophen 500mg every 4-6 hours as needed for fever and discomfort. - may alternate ibuprofen and acetaminophen For nasal congestion try: -Vaporizers, Neti Pot, humidifiers, hot showers, and hot fluids help open respiratory and sinus passages. - Puako Nasal [place] may offer relief of nasal and head congestion 2-3 times per day as needed. - Sudafed is a safe and effective decongestant for people who do not have high blood pressure. Do not take Sudafed if you have ever been told that you have high blood pressure or hypertension. General dosing guidelines: Immediate release: 60 mg every 4-6 hours; Extended release: 120 mg every 12 hours or 240 mg every 24 hours; maximum: 240 mg/24 hours. For Sore Throat try: - Salt water gargles every 2-3 hours as needed for discomfort - Chloraceptic spray or throat lozenges (Cepacol) For Cough and chest congestion try one of the following: - Mucinex or Robitussin are expectorants. You may take 200-400 mg every 4 hours to a not to exceed 2,400 mg/day OR Extended release tablet: 600-1200 mg every 12 hours, not to exceed 2,400 mg/day - Delsym is a cough suppressant: Oral: 10-20 mg every 4 hours or 30 mg every 6-8 hours OR Extended release: 60 mg twice daily; maximum: 120 mg/day - If you have high blood pressure or hypertension it is safe to take Coricidin? HBP Cough AND Cold. If you smoke it is advised that you quit smoking. CONTACT YOUR DOCTOR IF: 1. You have fevers for longer than five days or a fever more than 102 degrees 2. You are still sick after 10 days 3. After several days you are getting worse rather than better 4. You develop nausea, vomiting, diarrhea, or a rash. Go to the ER if you - experience pressure or pain in your chest - experience difficulty swallowing - experience difficulty breathing Follow up with your physician in 5-7 days or before if your symptoms get worse. Thank you for coming to [facility] today. I appreciate your confidence in choosing the [facility] for your medical care. Eileen Luke APRN.[facility] [address] [place], [place] [phone] Prescriptions ordered this encounter Disp Refills Start End PREDNISONE 20 MG TABLET 8 ta* 0 08/06/2018 08/10/2018 Route: ORAL Sig: Take 2 tablets by mouth once daily for 4 days. BENZONATATE 100 MG CAPSULE 15 c* 0 08/06/2018 Route: ORAL Sig: Take 1 capsule by mouth three times daily as needed. Medications Discontinued During This Encounter cyclobenzaprine (FLEXERIL) 10 mg tab* 30 t* 1 02/25/2018 08/06/2018 Route: ORAL Sig: Take 1 tablet by mouth three times daily. Disc: Course of therapy completed Letter Text Bernardo Liz Eileen Luke APRN.[place] [id number] 08/06/2018 RE: Bernardo Amaury Liz To Whom It May Concern: This is to certify that Bernardo Liz was seen in my office today. Anticipated return to work on or about 08/08/2018; if condition has improved. Please excuse from work on 08/06/2018 AND 08/07/2018 due to acute illness. Please do not hesitate to contact my office at the above phone number if you have any questions or concerns. Sincerely, Eileen Luke APRN.[place] (Electronically signed to expedite mailing) Encounter Status:Closed by EILEEN LUKE CNP on 08/06/18 PROGRESS Observed: 07/21/2018 Status: COMPLETED Source: [place] 12:13 PM [facility] [place] REPOSITORY HNO ID: [id number] Author: Sofia Louis Service: (none) Author Type: Physician Type: Progress Notes Filed: 07/21/2018 12:17 PM Note Text: Consult note PATIENT NAME: Bernardo Liz Assessment ASSESSMENT/PLAN: (N80.9) Endometrioma (primary encounter diagnosis) Bernardo presents with pain over her incision with a palpable mass. This pain occurred with her menstrual cycle. CT scan demonstrates a 1.9 cm lesion just to the left of the midline in her lower abdomen. I explained to Bernardo that this is most consistent with an endometrioma although may represent scar tissue from her . Her pain has resolved. She will continue to monitor this. If the pain continues we can discuss surgical excision. She is comfortable with this plan. She can return to see me as needed. No orders found for this visit on 07/21/18. SUBJECTIVE CHIEF COMPLAINT: Patient presents with: Consult: LLQ Abdominal Mass INTERVAL HISTORY OF PRESENT ILLNESS: Bernardo is a 32-year-old female who presents with a lump at her lower left incision. She noticed this last month with her menstrual cycle and was associated with tenderness. She did have an abnormal cycle at that time. She does have a Mirena in place. A CT scan was performed which showed a mixed attenuation 1.9 cm lesion to the left of the lower midline within her incision. She presents today for surgical evaluation. She does state that she had fluid collection in this area when she had her last year. HISTORIES: PAST MEDICAL HISTORY Diagnosis Date - Acute left otitis media Resolved. - Acute pharyngitis - Cough - Croup Prednisone - Dysuria - Otalgia Resolved. - Other injury of extensor muscle, fascia and tendon of left ring finger at wrist and hand level, subsequent encounter - Pain in left finger(s) - Pain in throat - Upper respiratory infection - Urinary tract infectious disease PAST SURGICAL HISTORY Procedure Laterality Date - SECTION HX 2010 AND 2017 - REPAIR FINGER/HAND TENDON Left 2002 Repair hand tendon, left hand - TONSILLECTOMY HX 1989 ALLERGIES: Patient has no known allergies. MEDICATIONS: Current Outpatient Prescriptions: cyclobenzaprine (FLEXERIL) 10 mg tablet Take 1 tablet by mouth three times daily. No current facility-administered medications for this visit. FAMILY HISTORY Problem Relation Age of Onset - Breast Cancer Maternal Grandmother - Breast Cancer Maternal Aunt Social History Marital status: Single Spouse name: Years of education: Number of children: Social History Main Topics Smoking status: Current Every Day Smoker Packs/day: 0.00 Years: 0.00 Smokeless tobacco: Never Used Comment: Current smoker; Smoking details Type: cigarette; Pattern of use: Every day smoker; Tobacco reviewed with patient 10/15/2015 Alcohol use: No Drug use: No Other Topics Concern Caffeine Concern Yes Comment:Type: coffee; Amount: minimal (equiv to < 1 8oz coffee/day) Reviewed and agreed with Review of Systems completed by the clinical staff. OBJECTIVE PHYSICAL EXAM: BP 128/83 Pulse 87 Ht 5' 2 (1.58m) Wt 122 lb (55.3kg) BMI 22.31 kg/(m2). General: Well developed, well-nourished, in no distress HEENT: Normocephalic, atraumatic. Extraocular movements intact. Sclera are nonicteric. Neck: Supple, no masses, no adenopathy, thyroid is normal Heart: Regular rate and rhythm, no murmur Lungs: Clear to auscultation, without wheezes Abdomen: Soft, non tender, positive bowel sounds, vague mass just to the left of the midline overlying her incision. Nontender. No evidence for infection, no hernia Rectal: Not evaluated Extremities: No edema Neurologic: Alert, oriented, and appropriate. DATA: Diagnostic tests reviewed for today's visit: CT scan was reviewed with the patient today. This demonstrates a 1.9 cm mixed attenuation lesion within the rectus sheath to the left of the midline. Sofia Louis MD PROGRESS Observed: 07/21/2018 Status: COMPLETED Source: [place] 10:41 AM [facility] REPOSITORY HNO ID: [id number] Author: Lauren Aguero LPN Service: (none) Author Type: (none) Type: Progress Notes Filed: 07/21/2018 12:17 PM Note Text: GENERAL:No weight loss, No malaise, No fevers HEENT:Negative for frequent or significant headaches, No changes in hearing or vision, no nose bleeds or other nasal problems CARDIOVASCULAR: Negative for chest pain, Negative for leg swelling, Negative for palpitaions RESPIRATORY:Negative for cough, wheezing or shortness of breath. GASTROINTESTINAL: Negative for abdominal discomfort, Negative for blood in stools, Negative for black stools and Negative for change in bowel habits GENITOURINARY: No history of dysuria, frequency or incontinence. ENDOCRINE: None GLUE MIXER:Denies any concerns GLUE MIXER: Age of first period: 13 Number of pregnancies: 4 Number of live births: 3 Your age at of first child: 22 Your age at start of menopause: N/A Taking hormone replacement: No Family History of Cancer: Breast,Aunt AND Maternal Grandmother. Are you : No MUSCULOSKELETAL: Negative for joint pain or swelling, back pain or muscle pain. NEUROLOGIC:Negative for focal numbness or weakness, headaches and dizziness or syncope. HEMATOLOGIC/LYMPHATIC/IMMUNOLOGIC:Positive for: and Bleeding or bruising tendancy CNOV Observed: 07/21/2018 Status: COMPLETED Source: [place] 10:30 AM [facility] REPOSITORY Office Visit (GENLY[facility]) BERNARDO LIZ ([id number]) 1985 F Date Time Provider Department 07/21/18 10:30 AM [facility] During your visit today, we recorded the following information about you: Pulse Blood pressure Weight Height 87/minute 128/83 55.3 kg 1.575 m Lauren Aguero LPN 07/21/2018 12:17 PM Signed GENERAL:No weight loss, No malaise, No fevers HEENT:Negative for frequent or significant headaches, No changes in hearing or vision, no nose bleeds or other nasal problems CARDIOVASCULAR: Negative for chest pain, Negative for leg swelling, Negative for palpitaions RESPIRATORY:Negative for cough, wheezing or shortness of breath. GASTROINTESTINAL: Negative for abdominal discomfort, Negative for blood in stools, Negative for black stools and Negative for change in bowel habits GENITOURINARY: No history of dysuria, frequency or incontinence. ENDOCRINE: None GLUE MIXER:Denies any concerns GLUE MIXER: Age of first period: 13 Number of pregnancies: 4 Number of live births: 3 Your age at of first child: 22 Your age at start of menopause: N/A Taking hormone replacement: No Family History of Cancer: Breast,Aunt AND Maternal Grandmother. Are you : No MUSCULOSKELETAL: Negative for joint pain or swelling, back pain or muscle pain. NEUROLOGIC:Negative for focal numbness or weakness, headaches and dizziness or syncope. HEMATOLOGIC/LYMPHATIC/IMMUNOLOGIC:Positive for: and Bleeding or bruising tendancy Lauren Aguero LPN 07/21/2018 10:44 AM Signed SMOKING CESSATION Stopping smoking is one of the most important things you can do to protect your current and future health, as well as that of your family. It is an potent risk factor for the future development of coronary artery disease and heart attacks. Smoking is both an addiction and a learned behavior. The nicotine withdrawal takes anywhere from 2-4 weeks and results in symptoms such as irritability, fatigue, insomnia, coughing, dizziness, poor concentration, hunger and cigarette cravings. After the nicotine withdrawal period, the learned linkage between certain acts or situations and cigarette use remain. Strategies to deal with these must be developed along with new behaviors to ensure successful smoking cessation. RESOURCES [facility] Smoking Cessation Appointment Line [facility] [phone]. [place] Tobacco Quit line: National Cancer Foster at http://www.smokefree.gov [place] [employer] at http://www.lungusa.org [employer] at http://www.cancer.org STRATEGIES TOWARD SMOKING CESSATION - Make a list of the reasons why you want to quit, plus the benefits to be gained, and compare them to the reasons why you should continue to smoke. - Pick a specific quit date. - If you are interested in using nicotine patches or gum to assist with the nicotine withdrawal, let your doctor know. - Inform friends, family, and co-workers that you are quitting and when your quit date is. Ask for their understanding and support. - Prepare your environment by removing all cigarettes prior to your quit date. - Prior to your quit date, avoid smoking in places where you spend a lot of time (such as the house, work, car). - From previous quit attempts, identify what helped you to stop smoking. - From previous quit attempts, identify what triggered relapse. How can you avoid that again? - What things (situations, emotions) do you anticipate will be most challenging, especially in the first few weeks, to your quitting effort? - What can you do to address these challenges? - Avoid (or limit) alcohol consumption during the quitting process. - If your spouse or close coworker currently smokes, consider quitting together or at the very least, develop specific plans to maintain your cigarette abstinence while in the home or at work. - Take each day, each hour, each craving, one at a time. Every step or action you take toward smoking cessation is a success. The only failure is the failure to try. - The health of you and your family is worth the effort. STOP SMOKING CHECK LIST Preparing to Quit: ___ Make a personal pact with yourself to quit. ___ Pick a date for quitting completely. (My date to quit is ____.) ___ Write down on a card the three most important reasons for quitting. Carry the card with you from now on. Look at it several times a day. ___ Prior to quitting, eliminate smoking completely in 2 or 3 of your high risk situations. ___ Reduce consumption to one pack per day or less. ___ Change to a less desirable brand of cigarettes. ___ Discard your converter operator. Use matches. Carry your cigarettes in a different place. ___ Spend a little time each day picturing in your mind stressful events occurring in the future and you not smoking. Actual Quitting: The First Two Weeks ___ Get rid of all cigarettes. Put away all smoking related objects such as ashtrays. Ask the people you live with not to smoke in your presence for the first two weeks. ___ Spend as much time as possible with non-smoking people. ___ Keep busy, especially on evenings and weekends. ___ Avoid high risk situations (large parties, bars, etc.). ___ Spend time in places that prohibit or discourage smoking (e.g., theaters, libraries). ___ Drink plenty of fluids. ___ Don't substitute food or sugar based products for cigarettes. Use approved substitutions. (ice water, high bulk/low calorie foods, sugarless gum, mouthwash, brushing teeth) ___ Begin or increase a regular exercise program. ___ When experiencing withdrawal effects: 1. Remind yourself why you are quitting (from your card). 2. Remind yourself that whatever discomfort you are experiencing is only a tiny fraction of the probable discomfort associated with continued smoking. 3. Practice deep breathing or other relaxation techniques. ___ Remind yourself that you can free yourself from this unhealthy, expensive, messy habit and become a non-smoker. Maintenance of Quitting: After two weeks ___ Remind yourself that the desire to smoke is linked to many situations, people and emotional stress. ___ When you do have a desire to smoke, remember that it only lasts a few seconds: distract yourself and leave the situation if necessary. ___ After each desire to smoke has passed, pat yourself on the back, you have just made progress in breaking the habit forever. ___ Save the money on wasted on cigarettes in a special fund and buy yourself something nice. Maintenance of Quitting: After Two Months ___ Be particularly vigilant when unusual life events occur. (weddings, holidays, vacations). ___ Be particularly vigilant when stressful life events occur (relationship, financial or work problems). ___ Remind yourself regularly that not smoking is completely within your personal control. ___ Never lull yourself into thinking you are out of danger and you can safely have a cigarette or two. ___ If you do slip and have one or more cigarettes, do not conclude that you have failed at quitting. Return to complete abstinence immediately and learn from your experience. ___ If you have gained significant weight since quitting, now is the time to do something about it. ___ Each time you see a cigarettes advertisement, remind yourself of why you quit. Also remember that a [employer] industry spends billions of dollars each year trying to get people like yourself re-hooked. Sofia Louis MD 07/21/2018 10:58 AM Signed You have an endometrioma. Monitor the symptoms. Sofia Louis MD 07/21/2018 12:17 PM Signed Consult note PATIENT NAME: Bernardo Liz Assessment ASSESSMENT/PLAN: (N80.9) Endometrioma (primary encounter diagnosis) Bernardo presents with pain over her incision with a palpable mass. This pain occurred with her menstrual cycle. CT scan demonstrates a 1.9 cm lesion just to the left of the midline in her lower abdomen. I explained to Bernardo that this is most consistent with an endometrioma although may represent scar tissue from her . Her pain has resolved. She will continue to monitor this. If the pain continues we can discuss surgical excision. She is comfortable with this plan. She can return to see me as needed. No orders found for this visit on 07/21/18. SUBJECTIVE CHIEF COMPLAINT: Patient presents with: Consult: LLQ Abdominal Mass INTERVAL HISTORY OF PRESENT ILLNESS: Bernardo is a 32-year-old female who presents with a lump at her lower left incision. She noticed this last month with her menstrual cycle and was associated with tenderness. She did have an abnormal cycle at that time. She does have a Mirena in place. A CT scan was performed which showed a mixed attenuation 1.9 cm lesion to the left of the lower midline within her incision. She presents today for surgical evaluation. She does state that she had fluid collection in this area when she had her last year. HISTORIES: PAST MEDICAL HISTORY Diagnosis Date - Acute left otitis media Resolved. - Acute pharyngitis - Cough - Croup Prednisone - Dysuria - Otalgia Resolved. - Other injury of extensor muscle, fascia and tendon of left ring finger at wrist and hand level, subsequent encounter - Pain in left finger(s) - Pain in throat - Upper respiratory infection - Urinary tract infectious disease PAST SURGICAL HISTORY Procedure Laterality Date - SECTION HX 2010 AND 2016 - REPAIR FINGER/HAND TENDON Left 2002 Repair hand tendon, left hand - TONSILLECTOMY HX 1989 ALLERGIES: Patient has no known allergies. MEDICATIONS: Current Outpatient Prescriptions: cyclobenzaprine (FLEXERIL) 10 mg tablet Take 1 tablet by mouth three times daily. No current facility-administered medications for this visit. FAMILY HISTORY Problem Relation Age of Onset - Breast Cancer Maternal Grandmother - Breast Cancer Maternal Aunt Social History Marital status: Single Spouse name: Years of education: Number of children: Social History Main Topics Smoking status: Current Every Day Smoker Packs/day: 0.00 Years: 0.00 Smokeless tobacco: Never Used Comment: Current smoker; Smoking details Type: cigarette; Pattern of use: Every day smoker; Tobacco reviewed with patient 10/15/2015 Alcohol use: No Drug use: No Other Topics Concern Caffeine Concern Yes Comment:Type: coffee; Amount: minimal (equiv to < 1 8oz coffee/day) Reviewed and agreed with Review of Systems completed by the clinical staff. OBJECTIVE PHYSICAL EXAM: BP 128/83 Pulse 87 Ht 5' 2 (1.58m) Wt 122 lb (55.3kg) BMI 22.31 kg/(m2). General: Well developed, well-nourished, in no distress HEENT: Normocephalic, atraumatic. Extraocular movements intact. Sclera are nonicteric. Neck: Supple, no masses, no adenopathy, thyroid is normal Heart: Regular rate and rhythm, no murmur Lungs: Clear to auscultation, without wheezes Abdomen: Soft, non tender, positive bowel sounds, vague mass just to the left of the midline overlying her incision. Nontender. No evidence for infection, no hernia Rectal: Not evaluated Extremities: No edema Neurologic: Alert, oriented, and appropriate. DATA: Diagnostic tests reviewed for today's visit: CT scan was reviewed with the patient today. This demonstrates a 1.9 cm mixed attenuation lesion within the rectus sheath to the left of the midline. Sofia Louis MD Referring Provider: BHARTI AVITIA ([facility]) [[id number]] Allergies As of Date: 07/21/2018 (No Known Allergies) Date Reviewed: 07/21/2018 Reviewed by: Sofia Louis - Fully Assessed Reason for Visit: Consult [173] Cmt: LLQ Abdominal Mass Primary Visit Diagnosis:Endometrioma [N80.9] Prescriptions as of 07/21/2018 Sig: CYCLOBENZAPRINE 10 MG TABLET Take 1 tablet by mouth three * Problem List As Of Date 07/21/2018 Noted Resolved Posture abnormality [R29.3] INVALID FOR* Acute low back pain with left-sided sciatica [M*INVALID FOR* Other instructions from your clinician: You have an endometrioma. Monitor the symptoms. Visit Notes: >> Lauren Aguero CATHY Ena Jul 21, 2018 10:44 AM Status: Signed SMOKING CESSATION Stopping smoking is one of the most important things you can do to protect your current and future health, as well as that of your family. It is an potent risk factor for the future development of coronary artery disease and heart attacks. Smoking is both an addiction and a learned behavior. The nicotine withdrawal takes anywhere from 2-4 weeks and results in symptoms such as irritability, fatigue, insomnia, coughing, dizziness, poor concentration, hunger and cigarette cravings. After the nicotine withdrawal period, the learned linkage between certain acts or situations and cigarette use remain. Strategies to deal with these must be developed along with new behaviors to ensure successful smoking cessation. RESOURCES [facility] Smoking Cessation Appointment Line [facility] [phone]. [place] Tobacco Quit line: National Cancer Foster at http://www.smokefree.gov [place] [employer] at http://www.lungusa.org [employer] at http://www.cancer.org STRATEGIES TOWARD SMOKING CESSATION - Make a list of the reasons why you want to quit, plus the benefits to be gained, and compare them to the reasons why you should continue to smoke. - Pick a specific quit date. - If you are interested in using nicotine patches or gum to assist with the nicotine withdrawal, let your doctor know. - Inform friends, family, and co-workers that you are quitting and when your quit date is. Ask for their understanding and support. - Prepare your environment by removing all cigarettes prior to your quit date. - Prior to your quit date, avoid smoking in places where you spend a lot of time (such as the house, work, car). - From previous quit attempts, identify what helped you to stop smoking. - From previous quit attempts, identify what triggered relapse. How can you avoid that again? - What things (situations, emotions) do you anticipate will be most challenging, especially in the first few weeks, to your quitting effort? - What can you do to address these challenges? - Avoid (or limit) alcohol consumption during the quitting process. - If your spouse or close coworker currently smokes, consider quitting together or at the very least, develop specific plans to maintain your cigarette abstinence while in the home or at work. - Take each day, each hour, each craving, one at a time. Every step or action you take toward smoking cessation is a success. The only failure is the failure to try. - The health of you and your family is worth the effort. STOP SMOKING CHECK LIST Preparing to Quit: ___ Make a personal pact with yourself to quit. ___ Pick a date for quitting completely. (My date to quit is ____.) ___ Write down on a card the three most important reasons for quitting. Carry the card with you from now on. Look at it several times a day. ___ Prior to quitting, eliminate smoking completely in 2 or 3 of your high risk situations. ___ Reduce consumption to one pack per day or less. ___ Change to a less desirable brand of cigarettes. ___ Discard your converter operator. Use matches. Carry your cigarettes in a different place. ___ Spend a little time each day picturing in your mind stressful events occurring in the future and you not smoking. Actual Quitting: The First Two Weeks ___ Get rid of all cigarettes. Put away all smoking related objects such as ashtrays. Ask the people you live with not to smoke in your presence for the first two weeks. ___ Spend as much time as possible with non-smoking people. ___ Keep busy, especially on evenings and weekends. ___ Avoid high risk situations (large parties, bars, etc.). ___ Spend time in places that prohibit or discourage smoking (e.g., theaters, libraries). ___ Drink plenty of fluids. ___ Don't substitute food or sugar based products for cigarettes. Use approved substitutions. (ice water, high bulk/low calorie foods, sugarless gum, mouthwash, brushing teeth) ___ Begin or increase a regular exercise program. ___ When experiencing withdrawal effects: 1. Remind yourself why you are quitting (from your card). 2. Remind yourself that whatever discomfort you are experiencing is only a tiny fraction of the probable discomfort associated with continued smoking. 3. Practice deep breathing or other relaxation techniques. ___ Remind yourself that you can free yourself from this unhealthy, expensive, messy habit and become a non-smoker. Maintenance of Quitting: After two weeks ___ Remind yourself that the desire to smoke is linked to many situations, people and emotional stress. ___ When you do have a desire to smoke, remember that it only lasts a few seconds: distract yourself and leave the situation if necessary. ___ After each desire to smoke has passed, pat yourself on the back, you have just made progress in breaking the habit forever. ___ Save the money on wasted on cigarettes in a special fund and buy yourself something nice. Maintenance of Quitting: After Two Months ___ Be particularly vigilant when unusual life events occur. (weddings, holidays, vacations). ___ Be particularly vigilant when stressful life events occur (relationship, financial or work problems). ___ Remind yourself regularly that not smoking is completely within your personal control. ___ Never lull yourself into thinking you are out of danger and you can safely have a cigarette or two. ___ If you do slip and have one or more cigarettes, do not conclude that you have failed at quitting. Return to complete abstinence immediately and learn from your experience. ___ If you have gained significant weight since quitting, now is the time to do something about it. ___ Each time you see a cigarettes advertisement, remind yourself of why you quit. Also remember that a [employer] industry spends billions of dollars each year trying to get people like yourself re-hooked. Encounter Status:Closed by SOFIA LOUIS MD on 07/21/18 GIRISH Observed: 07/14/2018 Status: COMPLETED Source: [place] 12:00 AM [facility] REPOSITORY Telephone ([employer]) BERNARDO LIZ ([id number]) 1985 F Date Time Provider Department 07/14/18 BHARTI AVITIA CNP During your visit today, we recorded the following information about you: Alberta Collier [facility] 07/14/2018 9:58 AM Signed ----- Message from Bharti Avitia sent at 07/08/2018 4:56 PM EDT ----- WNL. Bharti Avitia APRN.CNP Alberta Collier [facility] 07/14/2018 9:59 AM Signed ----- Message from Bharti Avitia sent at 07/12/2018 7:58 AM EDT ----- IUD in place. Left mass is a soft tissue lesion - may be inflammation or endometriosis. Has appt with GLUE MIXER tomorrow. I would like her to consult with Dr. Corey first, results should have been sent over. Please have her update us after her appt. Thank you. Bharti Avitia APRN.CNP Alberta Collier [facility] 07/14/2018 10:14 AM Signed BASIC METABOLIC PNL Order: [id number] Status: Final result ??Visible to patient: Yes (MyChart) Dx: Left lower quadrant pain; Left lower ... Notes recorded by Bharti Avitia on 07/08/2018 at 4:56 PM EDT WNL. Bharti Avitia APRN.CNP Lm advising pt of lab results. Pt was advised of CT results 07/12/18. 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 Alberta Collier [facility] Yany Doll [facility] 07/18/2018 7:46 AM Signed Patient called and her GLUE MIXER feels she has endometriosis and was referred to a surgeon for further eval. The physician that she was referred to does not take her insurance and they suggested her PCP could suggest another surgeon that she could go to. Please advise. ROMY Jarrett APRN.CNP 07/18/2018 8:17 AM Signed Okay. I recommend Dr. Louis in [place]. See referral. SAMMY Henley APRN.CNP 07/18/2018 8:18 AM Signed Addended by: BHARTI AVITIA CNP on: 07/18/2018 08:18 AM Modules accepted: Orders Albertapadmini Collier CMA 07/19/2018 4:55 PM Signed Pt advised of referral, asked to call us with appnt date. sending to front desk person to process if needed. Alberta ROMY Collier Allergies As of Date: 07/14/2018 (No Known Allergies) Date Reviewed: 07/05/2018 Reviewed by: Bharti Sorenson ([place]) Ana - Fully Assessed Reason for Visit: Results [95] Cmt: labs/CT Primary Visit Diagnosis:Left lower quadrant abdominal mass [R19.04] Order(s):CONSULT TO GENERAL SURGERY [9011] Order #: [id number]: 1 Prescriptions as of 07/14/2018 Sig: CYCLOBENZAPRINE 10 MG TABLET Take 1 tablet by mouth three * Problem List As Of Date 07/14/2018 Noted Resolved Posture abnormality [R29.3] INVALID FOR* Acute low back pain with left-sided sciatica [M*INVALID FOR* Encounter Status:Closed by ALBERTA COLLIER on 07/14/18 CT ABDOMEN AND PELVIS Observed: 07/08/2018 Status: F Source: [employer] [facility] WITH CONTRAST 8:22 PM HEALTH SYSTEM REPOSITORY Performed at [facility] APPROVED BY: DANNY RHODES MD EXAMINATION: CT ABDOMEN AND PELVIS WITH IV CONTRAST CLINICAL HISTORY: Pain and palpable abnormality near scar TECHNIQUE: CT of the abdomen and pelvis was performed using standard technique, scanning from just above the dome of the diaphragm to the symphysis pubis. MQ: CTAP_3 Contrast: IV: 100 ml of Omnipaque 300 Oral: [address] Radiation dose: Integrated Dose-length product (DLP) for this visit = 671 mGy*cm. CT Dose Reduction Employed: Automated exposure control (AEC) was used. COMPARISON: None. RESULT: Liver: No mass. Focal fat is seen adjacent to the falciform ligament in the medial segment of the left lobe of the liver. Biliary: No bile duct dilation. Gallbladder is collapsed. Spleen: No mass. No splenomegaly. Pancreas: No mass or duct dilation. Adrenals: No mass. Kidneys: No mass, calculus or hydronephrosis. GI tract: No dilation or wall thickening. Normal appendix. Lymph nodes: No abdominal or pelvic lymphadenopathy. Mesentery/Peritoneum: No ascites or mass. Retroperitoneum: No mass. Vasculature: The celiac axis and SMA are patent. The portal vein and branches, splenic vein, SMV, and hepatic veins are patent. Normal caliber aorta. Pelvis: IUD in satisfactory position in the uterus. 2.1 cm RIGHT ovarian cyst is likely functional in nature. No ascites or fluid collection. Normal bladder wall thickness. Bones/Soft Tissues: Within the rectus sheath just to the LEFT of midline there is a 1.9 x 1.5 cm mixed attenuation structure, with areas of slightly high attenuation (2:87 and sagittal: 63). No localiz ed fluid collection or gas seen associated with it. No other anterior abdominal wall abnormality. No acute skeletal abnormality. Lower thorax: No acute abnormality IMPRESSION: Small soft tissue attenuation lesion in the rectus sheath just to the LEFT of midline, with areas of high attenuation but no gas or discrete fluid. This expands the rectus sheath at this point. This c ould represent an area of inflammation, exuberant scar formation, or endometriosis. Neoplasm is a less likely consideration. If this does not resolve, aspiration and/or biopsy might be considered No other acute abnormality in the abdomen or pelvis IUD in place CNOV Observed: 07/08/2018 Status: COMPLETED Source: [place] 3:40 PM [facility] REPOSITORY Office Visit (ARDEN) BERNARDO LIZ ([id number]) 1985 F Date Time Provider Department 07/08/18 3:40 PM NURSE RON HER During your visit today, we recorded the following information about you: Respiration Blood pressure 16/minute 100/68 Alberta CollierROMY 07/08/2018 4:25 PM Signed Pt here because she is having some unusual spotting, has mirena and has a CT this afternoon, she is concerned with possibly being . Per conversation with PANFILO I called the pt and had her come in for NV for test. After conversation with [facility] the pt was advised test was negative and it was ok to have CT this afternoon. Alberta Collier CMA Referring Provider: SELF [200] Allergies As of Date: 07/08/2018 (No Known Allergies) Date Reviewed: 07/05/2018 Reviewed by: Bharti Avitia - Fully Assessed Reason for Visit: Nurse Visit [792] Primary Visit Diagnosis:Spotting [N92.0] Order(s):HCG QUAL UR B/O [2108543] Order #: [id number] Prescriptions as of 07/08/2018 Sig: CYCLOBENZAPRINE 10 MG TABLET Take 1 tablet by mouth three * Problem List As Of Date 07/08/2018 Noted Resolved Posture abnormality [R29.3] INVALID FOR* Acute low back pain with left-sided sciatica [M*INVALID FOR* Visit Notes: >> Alberta Collier WedJul 08, 2018 3:45 PM Status: Signed Pt here because she is having some unusual spotting, has mirena and has a CT this afternoon, she is concerned with possibly being . Per conversation with [facility] I called the pt and had her come in for NV for test. After conversation with [facility] the pt was advised test was negative and it was ok to have CT this afternoon. Alberta Collier CMA Encounter Status:Closed by ALBERTA COLLIER on 07/08/18 BASIC PANEL Collected: 07/08/2018 Status: F Source: [facility] 2:42 PM HEALTH SYSTEM REPOSITORY TYPE CODE TESTS RESULT OUT OF REFERENCE UNITS RANGE LAB LOOPING INSPECTOR(LOINC) 136-145 mEq/L Low Sodium Blood 132 LAB LK(LOINC) 3.5-5.1 mEq/L Potassium Blood 3.7 LAB LCL(LOINC) 98-107 mEq/L Chloride Blood 107 LAB LCO2(LOINC 21-32 mEq/L ) CO2 Blood 25 LAB LGLU(LOINC 70-99 mg/dL ) Glucose Blood 92 LAB LBUN(LOINC 7-25 mg/dL ) BUN Blood 12 LAB LCREA(LOIN 0.51-0.95 mg/dL C) Creatinine Blood 0.72 LAB LCA(LOINC) 8.5-10.1 mg/dL Calcium Blood 8.9 LAB LANGP(LOIN 8-20 C) Low Anion Gap 4 LAB LBNCR(LOIN 10-20 C) BUN/Creatinine 17 Ratio Performed By: #### LP8 #### [facility] [address] [place], [place] [address] MDRD EGFR Collected: 07/08/2018 Status: F Source: [facility] 2:42 PM HEALTH SYSTEM REPOSITORY TYPE CODE TESTS RESULT OUT OF RANGE REFERENCE UNITS LAB LGFRF(LOINC >60mL/min/1.73m ) 2 eGFR >60 Result Comment: If the patient is , multiply the result by 1.210. Performed By: #### LGFR #### [facility] [address] [place], [place] [address] PROGRESS Observed: 07/05/2018 Status: COMPLETED Source: [place] 3:06 PM [facility] HNO ID: [id number] Author: Bharti Sorenson (Regulatory Compliance Officer) Ana Service: (none) Author Type: Nurse Practitioner Type: Progress Notes Filed: 07/05/2018 5:24 PM Note Text: Subjective HPI Bernardo Liz is a 32 year old female here today for abdominal pain and bulging. I reviewed past medical, surgical, social, and family histories today and updated chart. Allergies, chronic medications, and supplements were also reviewed. Patient noticed some pain and bulging in her left lower abdomen a couple of months ago. Related it to being stressed but it never got better. She is worried about a hernia. The bulging is right above her incision line. was 11 months ago. 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 Denies specific event that caused pain. Denies feeling a popping sensation. No bruising or redness No numb or tingling Incision is kind of numb, but has been like that since surgery. Has appt GLUE MIXER 07/13 Dr. Corey in [place]. PAST MEDICAL HISTORY Diagnosis Date - Acute left otitis media Resolved. - Acute pharyngitis - Cough - Croup Prednisone - Dysuria - Otalgia Resolved. - Other injury of extensor muscle, fascia and tendon of left ring finger at wrist and hand level, subsequent encounter - Pain in left finger(s) - Pain in throat - Upper respiratory infection - Urinary tract infectious disease PAST SURGICAL HISTORY Procedure Laterality Date - REPAIR FINGER/HAND TENDON Left 2002 Repair hand tendon, left hand - TONSILLECTOMY HX 1989 ALLERGIES Patient has no known allergies. MEDICATIONS iv contrast (will be provided with radiology test) CT ABD/PEL -Inject, intravenously, once for 1 dose.No IV access, insert saline lock prior to the beginning of sedation, infusion, injection of imaging exam. Discontinue saline lock post exam. If Pt. has a central line or IVAD, may access for administration according to line specific nursing protocol. Once exam is complete flush line and de-access according to line specific nursing protocol in the CT contrast administration guidelines link. enteric contrast (will be provided with radiology test) For CT ABD/PEL W IVCON Routine order Administer, As Directed One Time Only, via Oral, Rectal, both Oral and Rectal, Enteric Tube, Stoma or Indwelling Catheter, Enteric Contrast as designated per enteric contrast guidelines cyclobenzaprine (FLEXERIL) 10 mg tablet Take 1 tablet by mouth three times daily. FAMILY HISTORY Problem Relation Age of Onset - None Other Social History Substance Use Topics - Smoking status: Former Smoker - Smokeless tobacco: Never Used Comment: Current smoker; Smoking details Type: cigarette; Pattern of use: Every day smoker; Tobacco reviewed with patient 10/15/2015 - Alcohol use No Review of Systems Constitutional: Negative for chills, diaphoresis, fever, malaise/fatigue and weight loss. HENT: Negative for sore throat. Respiratory: Negative for cough, shortness of breath and wheezing. Cardiovascular: Negative for chest pain, palpitations and leg swelling. Gastrointestinal: Positive for abdominal pain. Negative for blood in stool, constipation, diarrhea, heartburn, nausea and vomiting. Genitourinary: Negative for dysuria, frequency, hematuria and urgency. Musculoskeletal: Negative for myalgias. Skin: Negative for itching and rash. Neurological: Negative for dizziness, tingling, sensory change and weakness. BP 110/64 Pulse 80 Temp 36.9 ?C (98.4 ?F) Resp 16 Ht 162.6 cm (5' 4) Wt 54.4 kg (120 lb) BMI 20.60 kg/m? Objective Physical Exam Constitutional: She is oriented to person, place, and time and well-developed, well-nourished, and in no distress. Non-toxic appearance. Cardiovascular: Normal rate, regular rhythm and normal heart sounds. No murmur heard. Pulmonary/Chest: Effort normal and breath sounds normal. She has no wheezes. She has no rales. Abdominal: Soft. Normal appearance and bowel sounds are normal. She exhibits mass. She exhibits no distension and no abdominal bruit. There is no hepatosplenomegaly. There is tenderness in the left lower quadrant. There is no CVA tenderness. Firm, mobile mass palpated to LLQ just above scar, about 2 inches in diameter, tender. No erythema, surrounding edema, or ecchymosis. Not able to reduce. Neurological: She is oriented to person, place, and time. She has normal motor skills and normal sensation. She displays no weakness. Gait normal. Skin: Skin is warm and dry. No bruising and no rash noted. ASSESSMENT/PLAN: 1. Left lower quadrant pain - ICD9: 789.04, ICD10: R10.32 (primary diagnosis) - CT to evaluate, palpable mass, possible hernia. - Increase fiber in diet and water - Follow up as needed for worsening of symptoms - CT ABD/PEL W IVCON - BASIC METABOLIC PNL 2. Left lower quadrant abdominal mass - ICD9: 789.34, ICD10: R19.04 CT to evaluate F/U as needed She will be seeing her GLUE MIXER that performed the surgery on 07/13/18. May need general surgery referral if hernia confirmed - CT ABD/PEL W IVCON - BASIC METABOLIC PNL Bharti Avitia APRN.BARTOLO CNOV Observed: 07/05/2018 Status: COMPLETED Source: [place] 2:40 PM [facility] REPOSITORY Office Visit (AGFAMPLE) BERNARDO LIZ ([id number]) 1985 F Date Time Provider Department 07/05/18 2:40 PM BHARTI AVITIA (BARTOLO) [place] During your visit today, we recorded the following information about you: Temperature Pulse Respiration Blood pressure 98.4 degrees 80/minute 16/minute 110/64 Weight Height 54.4 kg 1.626 m Alberta Collier CMA 07/05/2018 2:50 PM Signed Pt thinks she has a hernia in her csection scar, noticed a few weeks ago, hurts when she coughs, sneezes, moves. Alberta Collier, [facility] Bharti Avitia, KHUSHBOO.BARTOLO 07/05/2018 5:24 PM Signed Subjective HPI Bernardo Liz is a 32 year old female here today for abdominal pain and bulging. I reviewed past medical, surgical, social, and family histories today and updated chart. Allergies, chronic medications, and supplements were also reviewed. Patient noticed some pain and bulging in her left lower abdomen a couple of months ago. Related it to being stressed but it never got better. She is worried about a hernia. The bulging is right above her incision line. was 11 months ago. 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 Denies specific event that caused pain. Denies feeling a popping sensation. No bruising or redness No numb or tingling Incision is kind of numb, but has been like that since surgery. Has appt GLUE MIXER 07/13 Dr. Corey in [place]. PAST MEDICAL HISTORY Diagnosis Date - Acute left otitis media Resolved. - Acute pharyngitis - Cough - Croup Prednisone - Dysuria - Otalgia Resolved. - Other injury of extensor muscle, fascia and tendon of left ring finger at wrist and hand level, subsequent encounter - Pain in left finger(s) - Pain in throat - Upper respiratory infection - Urinary tract infectious disease PAST SURGICAL HISTORY Procedure Laterality Date - REPAIR FINGER/HAND TENDON Left 2002 Repair hand tendon, left hand - TONSILLECTOMY HX 1989 ALLERGIES Patient has no known allergies. MEDICATIONS iv contrast (will be provided with radiology test) CT ABD/PEL -Inject, intravenously, once for 1 dose.No IV access, insert saline lock prior to the beginning of sedation, infusion, injection of imaging exam. Discontinue saline lock post exam. If Pt. has a central line or IVAD, may access for administration according to line specific nursing protocol. Once exam is complete flush line and de-access according to line specific nursing protocol in the CT contrast administration guidelines link. enteric contrast (will be provided with radiology test) For CT ABD/PEL W IVCON Routine order Administer, As Directed One Time Only, via Oral, Rectal, both Oral and Rectal, Enteric Tube, Stoma or Indwelling Catheter, Enteric Contrast as designated per enteric contrast guidelines cyclobenzaprine (FLEXERIL) 10 mg tablet Take 1 tablet by mouth three times daily. FAMILY HISTORY Problem Relation Age of Onset - None Other Social History Substance Use Topics - Smoking status: Former Smoker - Smokeless tobacco: Never Used Comment: Current smoker; Smoking details Type: cigarette; Pattern of use: Every day smoker; Tobacco reviewed with patient 10/15/2015 - Alcohol use No Review of Systems Constitutional: Negative for chills, diaphoresis, fever, malaise/fatigue and weight loss. HENT: Negative for sore throat. Respiratory: Negative for cough, shortness of breath and wheezing. Cardiovascular: Negative for chest pain, palpitations and leg swelling. Gastrointestinal: Positive for abdominal pain. Negative for blood in stool, constipation, diarrhea, heartburn, nausea and vomiting. Genitourinary: Negative for dysuria, frequency, hematuria and urgency. Musculoskeletal: Negative for myalgias. Skin: Negative for itching and rash. Neurological: Negative for dizziness, tingling, sensory change and weakness. BP 110/64 Pulse 80 Temp 36.9 ?C (98.4 ?F) Resp 16 Ht 162.6 cm (5' 4) Wt 54.4 kg (120 lb) BMI 20.60 kg/m? Objective Physical Exam Constitutional: She is oriented to person, place, and time and well-developed, well-nourished, and in no distress. Non-toxic appearance. Cardiovascular: Normal rate, regular rhythm and normal heart sounds. No murmur heard. Pulmonary/Chest: Effort normal and breath sounds normal. She has no wheezes. She has no rales. Abdominal: Soft. Normal appearance and bowel sounds are normal. She exhibits mass. She exhibits no distension and no abdominal bruit. There is no hepatosplenomegaly. There is tenderness in the left lower quadrant. There is no CVA tenderness. Firm, mobile mass palpated to LLQ just above scar, about 2 inches in diameter, tender. No erythema, surrounding edema, or ecchymosis. Not able to reduce. Neurological: She is oriented to person, place, and time. She has normal motor skills and normal sensation. She displays no weakness. Gait normal. Skin: Skin is warm and dry. No bruising and no rash noted. ASSESSMENT/PLAN: 1. Left lower quadrant pain - ICD9: 789.04, ICD10: R10.32 (primary diagnosis) - CT to evaluate, palpable mass, possible hernia. - Increase fiber in diet and water - Follow up as needed for worsening of symptoms - CT ABD/PEL W IVCON - BASIC METABOLIC PNL 2. Left lower quadrant abdominal mass - ICD9: 789.34, ICD10: R19.04 CT to evaluate F/U as needed She will be seeing her GLUE MIXER that performed the surgery on 07/13/18. May need general surgery referral if hernia confirmed - CT ABD/PEL W IVCON - BASIC METABOLIC PNL Bharti Avitia, KHUSHBOO.DIGITAL MEDIA STRATEGIST Referring Provider: SELF [200] Allergies As of Date: 07/05/2018 (No Known Allergies) Date Reviewed: 07/05/2018 Reviewed by: Bharti Sorenson ([facility]) Ana - Fully Assessed Reason for Visit: Mass [64] Cmt: possible hernia where c section was done Primary Visit Diagnosis:Left lower quadrant pain [R10.32] Other Visit Diagnosis:Left lower quadrant abdominal mass [R19.04] Order(s):CT ABD/PEL W IVCON [[id number]] Order #: [id number] FUTURE iv contrast (will be provided with radiology test)CT ABD/PEL -Inject, intravenously, once for 1 dose.No IV access, insert saline lock prior to the beginning of sedation, infusion, injection of imaging exam. Discontinue saline lock post exam. If Pt. has a central line or IVAD, may access for administration according to line specific nursing protocol. Once exam is complete flush line and de- access according to line specific nursing protocol in the CT contrast administration guidelines link.Disp: 1 EachRfl: 0 enteric contrast (will be provided with radiology test)For CT ABD/PEL W IVCON Routine order Administer, As Directed One Time Only, via Oral, Rectal, both Oral and Rectal, Enteric Tube, Stoma or Indwelling Catheter, Enteric Contrast as designated per enteric contrast guidelinesDisp: 1 EachRfl: 0 BASIC METABOLIC PNL [SQBMP] Order #: [id number] FUTURE Prescriptions as of 07/05/2018 Sig: IV CONTRAST (RADIOLOGY PROCED* CT ABD/PEL -Inject, intraveno* ENTERIC CONTRAST (RADIOLOGY P* For CT ABD/PEL W IVCON Routin* CYCLOBENZAPRINE 10 MG TABLET Take 1 tablet by mouth three * Medication notes this encounter CYCLOBENZAPRINE 10 MG TABLET >> Alberta Collier CMA 07/05/2018 2:47 PM >> ALBERTA COLLIER WedJul 05, 2018 2:47 PM Not taking Problem List As Of Date 07/05/2018 Noted Resolved Posture abnormality [R29.3] INVALID FOR* Acute low back pain with left-sided sciatica [M*INVALID FOR* Visit Notes: >> Alberta (Romy) Amira paula Jul 05, 2018 2:50 PM Status: Signed Pt thinks she has a hernia in her csection scar, noticed a few weeks ago, hurts when she coughs, sneezes, moves. Alberta Collier CMA Prescriptions ordered this encounter Disp Refills Start End IV CONTRAST (RADIOLOGY PROCEDURE) 1 Ea* 0 07/05/2018 07/06/2018 Class: In Office Sig: CT ABD/PEL -Inject, intravenously, once for 1 dose.No IV access, insert saline lock prior to the beginning of sedation, infusion, injection of imaging exam. Discontinue saline lock post exam. If Pt. has a central line or IVAD, may access for administration according to line specific nursing protocol. Once exam is complete flush line and de-access according to line specific nursing protocol in the CT contrast administration guidelines link. ENTERIC CONTRAST (RADIOLOGY PROCEDUR* 1 Ea* 0 07/05/2018 07/06/2018 Class: In Office Sig: For CT ABD/PEL W IVCON Routine order Administer, As Directed One Time Only, via Oral, Rectal, both Oral and Rectal, Enteric Tube, Stoma or Indwelling Catheter, Enteric Contrast as designated per enteric contrast guidelines Disposition: Return if symptoms worsen or fail to improve. Follow-up and Disposition History Recorded Encounter Status:Closed by BHARTI AVITIA CNP on 07/05/18 PROGRESS Observed: 05/05/2018 Status: COMPLETED Source: [place] 8:25 AM [facility] [place] REPOSITORY O ID: [id number] Author: Reyna (Pt) AKANKSHA Ayala Service: (none) Author Type: Physical Therapist Type: Progress Notes Filed: 05/05/2018 8:26 AM Note Text: [facility] REHABILITATION AND SPORTS THERAPY PHYSICAL THERAPY DISCONTINUANCE OF CARE Plan of Care Period: Start of Care Date: 03/04/18 Last Visit Date: 03/10/18 Therapy Program: The following is a summary of the interventions provided for this episode of care; Therapeutic exercise and Therapeutic activities Assessment: Based on most recent visit, patient was progressing slower than expected toward functional goals based on pain levels and appointment compliance. Unable to formally assess goal achievement due to non-compliance with therapy plan of care. Reason for Discontinuation of Care: Patient has not returned to therapy or scheduled additional follow-up appointments. Reyna Ayala, PT PROGRESS Observed: 03/29/2018 Status: COMPLETED Source: [place] 9:30 AM [facility] REPOSITORY HNO ID: [id number] Author: Ilda Garcia Service: (none) Author Type: Physician Type: Progress Notes Filed: 04/09/2018 7:54 AM Note Text: Subjective HPI Pt is here for f/u for back pain. She is feeling better, still in PT. Taking flexeril as needed, no other meds, finished 10 days of naprosyn. Review of Systems Constitutional: Negative for chills, diaphoresis, fever, malaise/fatigue and weight loss. HENT: Negative for ear pain and hearing loss. Eyes: Negative for blurred vision and double vision. Respiratory: Negative for cough and shortness of breath. Cardiovascular: Negative for chest pain, palpitations and leg swelling. Gastrointestinal: Negative for constipation, diarrhea and heartburn. Genitourinary: Negative for dysuria and frequency. Musculoskeletal: Negative for back pain, falls, joint pain and myalgias. Skin: Negative for itching and rash. Neurological: Negative for dizziness, weakness and headaches. Endo/Heme/Allergies: Does not bruise/bleed easily. Psychiatric/Behavioral: Negative for depression and substance abuse. The patient does not have insomnia. Objective BP 110/62 Pulse 72 Temp 36.8 ?C (98.3 ?F) (Oral) Resp 16 Ht 162.6 cm (5' 4) Wt 58.3 kg (128 lb 9.6 oz) BMI 22.07 kg/m? Physical Exam Constitutional: She is oriented to person, place, and time and well-developed, well-nourished, and in no distress. HENT: Mouth/Throat: Normal dentition. Eyes: Conjunctivae, EOM and lids are normal. Pupils are equal, round, and reactive to light. Neck: Normal range of motion and phonation normal. Neck supple. Carotid bruit is not present. No edema present. No thyroid mass and no thyromegaly present. Cardiovascular: Normal rate, regular rhythm, normal heart sounds and intact distal pulses. Exam reveals no gallop and no friction rub. No murmur heard. Pulmonary/Chest: Effort normal and breath sounds normal. She has no wheezes. She has no rales. Abdominal: Soft. Normal appearance and bowel sounds are normal. She exhibits no distension and no mass. There is no tenderness. Musculoskeletal: Normal range of motion. She exhibits no edema or tenderness. Lymphadenopathy: She has no cervical adenopathy. Neurological: She is alert and oriented to person, place, and time. She has normal motor skills. No cranial nerve deficit. Gait normal. Coordination normal. Skin: Skin is warm and dry. No rash noted. No cyanosis or erythema. Nails show no clubbing. Psychiatric: Mood, affect and judgment normal. ASSESSMENT/PLAN: 1. Acute left-sided low back pain with left-sided sciatica - ICD9: 724.2, 724.3, ICD10: M54.42 Resolved - continue exercises, antiinflammatories as needed Ilda Garcia DO CNOV Observed: 03/29/2018 Status: COMPLETED Source: [place] 9:00 AM [facility] REPOSITORY Office Visit (ARDEN) BERNARDO LIZ ([id number]) 1985 F Date Time Provider Department 03/29/18 9:00 AM ILDA GARCIA During your visit today, we recorded the following information about you: Temperature Pulse Respiration Blood pressure 98.3 degrees 72/minute 16/minute 110/62 Weight Height 58.3 kg 1.626 m Yany Doll CMA 03/29/2018 9:21 AM Addendum [employer] Patient here for f/u back pain. patient states doing much better with physical therapy ROMY Jarrett DO 04/09/2018 7:54 AM Signed Subjective HPI Pt is here for f/u for back pain. She is feeling better, still in PT. Taking flexeril as needed, no other meds, finished 10 days of naprosyn. Review of Systems Constitutional: Negative for chills, diaphoresis, fever, malaise/fatigue and weight loss. HENT: Negative for ear pain and hearing loss. Eyes: Negative for blurred vision and double vision. Respiratory: Negative for cough and shortness of breath. Cardiovascular: Negative for chest pain, palpitations and leg swelling. Gastrointestinal: Negative for constipation, diarrhea and heartburn. Genitourinary: Negative for dysuria and frequency. Musculoskeletal: Negative for back pain, falls, joint pain and myalgias. Skin: Negative for itching and rash. Neurological: Negative for dizziness, weakness and headaches. Endo/Heme/Allergies: Does not bruise/bleed easily. Psychiatric/Behavioral: Negative for depression and substance abuse. The patient does not have insomnia. Objective BP 110/62 Pulse 72 Temp 36.8 ?C (98.3 ?F) (Oral) Resp 16 Ht 162.6 cm (5' 4) Wt 58.3 kg (128 lb 9.6 oz) BMI 22.07 kg/m? Physical Exam Constitutional: She is oriented to person, place, and time and well-developed, well-nourished, and in no distress. HENT: Mouth/Throat: Normal dentition. Eyes: Conjunctivae, EOM and lids are normal. Pupils are equal, round, and reactive to light. Neck: Normal range of motion and phonation normal. Neck supple. Carotid bruit is not present. No edema present. No thyroid mass and no thyromegaly present. Cardiovascular: Normal rate, regular rhythm, normal heart sounds and intact distal pulses. Exam reveals no gallop and no friction rub. No murmur heard. Pulmonary/Chest: Effort normal and breath sounds normal. She has no wheezes. She has no rales. Abdominal: Soft. Normal appearance and bowel sounds are normal. She exhibits no distension and no mass. There is no tenderness. Musculoskeletal: Normal range of motion. She exhibits no edema or tenderness. Lymphadenopathy: She has no cervical adenopathy. Neurological: She is alert and oriented to person, place, and time. She has normal motor skills. No cranial nerve deficit. Gait normal. Coordination normal. Skin: Skin is warm and dry. No rash noted. No cyanosis or erythema. Nails show no clubbing. Psychiatric: Mood, affect and judgment normal. ASSESSMENT/PLAN: 1. Acute left-sided low back pain with left-sided sciatica - ICD9: 724.2, 724.3, ICD10: M54.42 Resolved - continue exercises, antiinflammatories as needed Ilda Garcia DO Referring Provider: SELF [200] Allergies As of Date: 03/29/2018 (No Known Allergies) Date Reviewed: 03/29/2018 Reviewed by: Ilda Garcia - Fully Assessed Reason for Visit: Follow Up [171] Primary Visit Diagnosis:Acute left-sided low back pain with left-sided sciatica [M54.42] Prescriptions as of 03/29/2018 Sig: CYCLOBENZAPRINE 10 MG TABLET Take 1 tablet by mouth three * Problem List As Of Date 03/29/2018 Noted Resolved Posture abnormality [R29.3] INVALID FOR* Acute low back pain with left-sided sciatica [M*INVALID FOR* Visit Notes: >> Yany Giron March 29, 2018 9:13 AM Status: Addendum [employer] Patient here for f/u back pain. patient states doing much better with physical therapy Yany Doll CMA Medications Discontinued During This Encounter naproxen (NAPROSYN) 500 mg tablet 60 t* 2 02/25/2018 03/29/2018 Route: ORAL Sig: Take 1 tablet by mouth twice daily as needed for Pain. FOR PAIN. TAKE WITH FOOD. Patient not taking: Reported on 03/29/2018 Disc: Reason for discontinue is not on file. Disposition: Return if symptoms worsen or fail to improve. Follow-up and Disposition History Recorded Encounter Status:Closed by ILDA GARCIA DO on 04/09/18 CNCO Observed: 03/29/2018 Status: COMPLETED Source: [place] 12:00 AM [facility] REPOSITORY Letter Text Dear Bernardo Liz: How to activate your [facility] [employer] Account 1. Visit the [employer] Signup page at [email or web address] 2. Identify yourself using your one-time use activation code: Not generated 3. Follow the on-screen prompts to choose your own secure username and password The following information will be necessary to access your account for the first time: Information needed for sign-up: Your custom activation code used one-time only for the initial account set-up. Your date of The last 4 digits of your social security number What to do next: Fill in the requested information on the Identify Yourself Form at [email or web address] , click Next. Create your login and password, choose a [employer] ID and password that will be easy for you to use, but impossible for anyone else to guess. Pick a security question that will assist you in the event you forget your password the next time you log-on. If you have difficulty activating your account, please call our [employer] helpline at [phone] or toll free at . We hope you enjoy using [employer]! Kindest Regards, [facility] [employer] Team PROGRESS Observed: 03/10/2018 Status: COMPLETED Source: [place] 11:22 AM [facility] REPOSITORY HNO ID: [id number] Author: Robert (Dav) AKANKSHA Gonzales ASSIST Service: (none) Author Type: Swatcher Type: Progress Notes Filed: 03/10/2018 11:29 AM Note Text: Episode Visit Count: 3 Therapist That Will Oversee The Plan Of Care: Yas Cisse Start of Care Date: 03/04/18 Onset Date: 10/22/17 Plan of Care Certification Date: 03/04/18 Patient Identified by Name and Date of : Yes REHABILITATION AND SPORTS THERAPY PHYSICAL THERAPY TREATMENT NOTE ASSESSMENT: Bernardo Liz demonstrated improvements in abolishment of tingling and numbness in left lower extremity with use of si belt pt has difficulty maintaining core stability without use of si belt in standing positions. The patient will continue to benefit from continued skilled physical therapy for core stability, hamstring flexibility left. PLAN FOR NEXT VISIT: Assess use of SI belt strengthen transverse abdominius and obliques progress glut strengthening , introduce lumbar extension if tolerated SUBJECTIVE: pt reports bent over and twisted to pick something off floor and had right groin pain,pt usually only has tightness in left hamstring and tingling in left leg to pinkie of left foot Pain Score: 7/10 Pain Location: Leg - Left;Low Back/Lumbar Spine - Right Description: Tightness;Tingling Frequency: Intermittent (increased with prolonged standing or stying in one poosition) Post Treatment Pain Score: 0/10 (post use of SI belt) OBJECTIVE MEASURES WITH LEVEL OF FUNCTION: Pt reports no left lower extremity symptoms in weight bearing with use of si belt. TREATMENT: Therapeutic Exercise: 1: hooklying abdominal brace with clamshell green tb 10 x l,r, bilateral* 2: hooklyng with knees on theraball, head raise with abdominal brace 10 x * 3: hooklying with feet on theraball modified crunch with diagnol for oblique firng, 10 x l/r, 10 x alternating l/r* 4: manual hamstring stretch right 15 sec, left abdominal brace ad and stabilizing core with ue, bracing 10 sec x 3 Skilled Intervention: Patient was educated in proper exercise technique and purpose for exercises. Reviewed and educated patient on additions/changes for home exercise program as above (*) Therapeutic Activity: 1: practiced don/doffing of si belt Skilled Intervention: use of se belt to stabilize core , Billing: Remi: Therapeutic Exercise (16511): 1:1 time: 40 minutes (3 units: 38-52 mins) Total time: 40 minutes Robert Gonzales PTA CNTHERAPY Observed: 03/10/2018 Status: COMPLETED Source: [place] 10:00 AM [facility] REPOSITORY OT/PT/Speech Visit (LDPT) BERNARDO LIZ ([id number]) 1985 F Date Time Provider Department 03/10/18 10:00 AM ROBERT GONZALES (DAV) LDPT Date Time Provider Department Center 03/10/2018 10:00 AM [id number], PATRICK *LDPT [facility] [address] Reason for Visit: Physical Therapy [503] PT Discharge [752] Reason For Visit History Recorded Visit Diagnoses:Posture abnormality [R29.3] Acute left-sided low back pain with left-sided sciatica [M54.42] Allergies As of Date: 03/10/2018 (No Known Allergies) Date Reviewed: 03/04/2018 Reviewed by: Reyna (Pt) AKANKSHA Ayala - Fully Assessed Prescriptions as of 03/10/2018 Sig: CYCLOBENZAPRINE 10 MG TABLET Take 1 tablet by mouth three * X NAPROXEN 500 MG TABLET Take 1 tablet by mouth twice * Patient not taking: Reported on 03/29/2018 Progress Notes: Robert Gonzales PTA, PT ASSIST 03/10/2018 11:29 AM Signed Episode Visit Count: 3 Therapist That Will Oversee The Plan Of Care: Yas Cisse Start of Care Date: 03/04/18 Onset Date: 10/22/17 Plan of Care Certification Date: 03/04/18 Patient Identified by Name and Date of : Yes REHABILITATION AND SPORTS THERAPY PHYSICAL THERAPY TREATMENT NOTE ASSESSMENT: Bernardo Liz demonstrated improvements in abolishment of tingling and numbness in left lower extremity with use of si belt pt has difficulty maintaining core stability without use of si belt in standing positions. The patient will continue to benefit from continued skilled physical therapy for core stability, hamstring flexibility left. PLAN FOR NEXT VISIT: Assess use of SI belt strengthen transverse abdominius and obliques progress glut strengthening , introduce lumbar extension if tolerated SUBJECTIVE: pt reports bent over and twisted to pick something off floor and had right groin pain,pt usually only has tightness in left hamstring and tingling in left leg to pinkie of left foot Pain Score: 7/10 Pain Location: Leg - Left;Low Back/Lumbar Spine - Right Description: Tightness;Tingling Frequency: Intermittent (increased with prolonged standing or stying in one poosition) Post Treatment Pain Score: 0/10 (post use of SI belt) OBJECTIVE MEASURES WITH LEVEL OF FUNCTION: Pt reports no left lower extremity symptoms in weight bearing with use of si belt. TREATMENT: Therapeutic Exercise: 1: hooklying abdominal brace with clamshell green tb 10 x l,r, bilateral* 2: hooklyng with knees on theraball, head raise with abdominal brace 10 x * 3: hooklying with feet on theraball modified crunch with diagnol for oblique firng, 10 x l/r, 10 x alternating l/r* 4: manual hamstring stretch right 15 sec, left abdominal brace ad and stabilizing core with ue, bracing 10 sec x 3 Skilled Intervention: Patient was educated in proper exercise technique and purpose for exercises. Reviewed and educated patient on additions/changes for home exercise program as above (*) Therapeutic Activity: 1: practiced don/doffing of si belt Skilled Intervention: use of se belt to stabilize core , Billing: Remi: Therapeutic Exercise ([id number]): 1:1 time: 40 minutes (3 units: 38-52 mins) Total time: 40 minutes DAV Rios PT, PT 05/05/2018 8:26 AM Signed [facility]ORTS [facility]ERAP[facility] PHYSICAL THERAPY DISCONTINUANCE OF CARE Plan of Care Period: Start of Care Date: 03/04/18 Last Visit Date: 03/10/18 Therapy Program: The following is a summary of the interventions provided for this episode of care; Therapeutic exercise and Therapeutic activities Assessment: Based on most recent visit, patient was progressing slower than expected toward functional goals based on pain levels and appointment compliance. Unable to formally assess goal achievement due to non-compliance with therapy plan of care. Reason for Discontinuation of Care: Patient has not returned to therapy or scheduled additional follow-up appointments. Reyna Ayala PT PROGRESS Observed: 03/07/2018 Status: COMPLETED Source: [place] 3:12 PM [facility] REPOSITORY HNO ID: [id number] Author: Robert (Dav) AKANKSHA Gonzales ASSIST Service: (none) Author Type: Swatcher Type: Progress Notes Filed: 03/07/2018 3:16 PM Note Text: Episode Visit Count: 2 Therapist That Will Oversee The Plan Of Care: Yas Cisse Start of Care Date: 03/04/18 Onset Date: 10/22/17 Plan of Care Certification Date: 03/04/18 Patient Identified by Name and Date of : Yes REHABILITATION AND SPORTS THERAPY PHYSICAL THERAPY TREATMENT NOTE ASSESSMENT: Bernardo Liz demonstrated difficulty with decreasing radiculopathy in left lower extremity and improvements in abolishment of tightness in left hamstring post core stability. The patient will continue to benefit from continued skilled physical therapy for core stability and further assessment of left lower extremity radiculopathy. PLAN FOR NEXT VISIT: continue to strengthen core try to introduce slight lumbar extension with decompression exercises, if tightness in left hamstring persists with standing consider si belt. SUBJECTIVE: Pt reports left hamstring tightness and left le numbness to pinkie toe, standing in one place or rolling in bed or sit to stand can increase numbness in left lower extremity. Pain Score: 7/10 Pain Location: Leg - Left Description: Tightness;Numbness Frequency: Intermittent (radiculapathy increases with prolonged standing) Post Treatment Pain Score: 3/10 Pain Location: Leg - Left Post Treatment Pain Description: Numbness OBJECTIVE MEASURES WITH LEVEL OF FUNCTION: Pt with slight left posterior innominate. TREATMENT: Therapeutic Exercise: 1: DKTC 5 sec x 10 2: hooklying abdominal brace 5 sec x10 3: hooklying abdominal brace with clamshell green tb 10 x l,r, bilateral* 4: bridging with clamshell and abdominal brace 5 sec 10 x 2* 5: standing foundation pose, increased radiculapathy left le Skilled Intervention: Patient was educated in proper exercise technique and purpose for exercises. Reviewed and educated patient on additions/changes for home exercise program as above (*) Billing: Remi: Therapeutic Exercise ([id number]): 1:1 time: 45 minutes (3 units: 38-52 mins) Total time: 45 minutes Robert Gonzales PTA CNTHERAPY Observed: 03/07/2018 Status: COMPLETED Source: [place] 10:00 AM [facility] REPOSITORY OT/PT/Speech Visit (LDPT) BERNARDO LIZ ([id number]) 1985 F Date Time Provider Department 03/07/18 10:00 AM ROBERT GONZALES (SCENE PAINTER) LDPT Date Time Provider Department Center 03/07/2018 10:00 AM [id number], PATRICK *LDPT [facility] [address] Reason for Visit: Physical Therapy [503] Visit Diagnoses:Posture abnormality [R29.3] Acute left-sided low back pain with left-sided sciatica [M54.42] Allergies As of Date: 03/07/2018 (No Known Allergies) Date Reviewed: 03/04/2018 Reviewed by: Reyna (Pt) AKANKSHA Ayala - Fully Assessed Prescriptions as of 03/07/2018 Sig: CYCLOBENZAPRINE 10 MG TABLET Take 1 tablet by mouth three * NAPROXEN 500 MG TABLET Take 1 tablet by mouth twice * Progress Notes: Robert Gonzales PTA, PT ASSIST 03/07/2018 3:16 PM Signed Episode Visit Count: 2 Therapist That Will Oversee The Plan Of Care: Yas Cisse Start of Care Date: 03/04/18 Onset Date: 10/22/17 Plan of Care Certification Date: 03/04/18 Patient Identified by Name and Date of : Yes REHABILITATION AND SPORTS THERAPY PHYSICAL THERAPY TREATMENT NOTE ASSESSMENT: Bernardo Liz demonstrated difficulty with decreasing radiculopathy in left lower extremity and improvements in abolishment of tightness in left hamstring post core stability. The patient will continue to benefit from continued skilled physical therapy for core stability and further assessment of left lower extremity radiculopathy. PLAN FOR NEXT VISIT: continue to strengthen core try to introduce slight lumbar extension with decompression exercises, if tightness in left hamstring persists with standing consider si belt. SUBJECTIVE: Pt reports left hamstring tightness and left le numbness to pinkie toe, standing in one place or rolling in bed or sit to stand can increase numbness in left lower extremity. Pain Score: 7/10 Pain Location: Leg - Left Description: Tightness;Numbness Frequency: Intermittent (radiculapathy increases with prolonged standing) Post Treatment Pain Score: 3/10 Pain Location: Leg - Left Post Treatment Pain Description: Numbness OBJECTIVE MEASURES WITH LEVEL OF FUNCTION: Pt with slight left posterior innominate. TREATMENT: Therapeutic Exercise: 1: DKTC 5 sec x 10 2: hooklying abdominal brace 5 sec x10 3: hooklying abdominal brace with clamshell green tb 10 x l,r, bilateral* 4: bridging with clamshell and abdominal brace 5 sec 10 x 2* 5: standing foundation pose, increased radiculapathy left le Skilled Intervention: Patient was educated in proper exercise technique and purpose for exercises. Reviewed and educated patient on additions/changes for home exercise program as above (*) Billing: Remi: Therapeutic Exercise ([id number]): 1:1 time: 45 minutes (3 units: 38-52 mins) Total time: 45 minutes Robert Gonzales PTA PROGRESS Observed: 03/04/2018 Status: COMPLETED Source: [place] 12:51 PM [facility] REPOSITORY HNO ID: [id number] Author: Reyna (Pt) AKANKSHA Ayala Service: (none) Author Type: Physical Therapist Type: Progress Notes Filed: 03/04/2018 1:03 PM Note Text: Episode Visit Count: 1 Therapist That Will Oversee The Plan Of Care: Yas Cisse Start of Care Date: 03/04/18 Onset Date: 10/22/17 Plan of Care Certification Date: 03/04/18 Patient Identified by Name and Date of : Yes REHABILITATION AND SPORTS THERAPY PHYSICAL THERAPY EVALUATION PLAN OF CARE: Assessment: Bernardo Liz presents with the chief complaint of low back pain with left lower extremity tingiling and numbness. Symptoms began about 4-5 months ago 3 months after of 3rd child delivered by . Patient reports brief episode in 2016 that resolved with anti inflammatory medication. She is otherwise healthy without significant medical issues. She presents with impairments of low back pain with left lower extremity tingling that is aggrevated with prolonged sitting and standing. Symptoms radiate to 4th and 5th digit of left lower extremity. She may benefit from skilled therapy services to improve current symptoms. Low Back Pain Subgroup Classification Low Back Pain Subgroup Classification: Specific exercise subgroup: recommended visits 8. Specific Exercies Subgroup Classification based on: directional preference Prognosis: Good Good due to: current objective clinical presentation;positive past response to therapy Goals for Episode of Care: created on 03/04/18 through 04/15/18 Independent in home exercises. 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 Sleep through night without pain/symptoms. Sit for greater than 1-2 hours without pain/symptoms to allow for completion of daily tasks and driving tasks. Maintain proper sitting posture throughout session Improve Modified Oswestry Pain Questionnaire (LBP) by 6 points (12%) to indicate a Minimal Clinical Important Difference. Initial score 11/50. Abolish radicular symptoms. Planned Interventions, Frequency, and Duration: Current Frequency: 2x/week Duration: 6 weeks Total Number of Visits Planned: 8 Patient to be see for Planned Treatment Interventions: Therapeutic exercise;Neuromuscular re-education;Manual therapy;Therapeutic activities;Self-mcfp management;Patient/Family/Caregiver Education PLAN FOR NEXT VISIT: Assess response to flexion, continue with directional preference treatment and begin core strengthening, consider SI joint if symptoms continue Patient demonstrates good understanding of plan of care and treatment. The above goals and plan of care were discussed and agreed upon by patient/family. SUBJECTIVE: Bernardo Liz is a 32 year old female seen today for L sided low back pain Functional Limitations: sitting;standing;walking in the community Prior Level of Function: Independent without limitations Patient Goals: painfree, feel my leg again Intake Information: Prescription present Previous Treatment: Muscle relaxer?;NSAIDs? 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 Cancer Clinical Reasoning: No identified risk factors. Infection Clinical Reasoning: No identified risk factors. Cauda Equina Syndrome Clinical Reasoning: No identified risk factors. Red Flags - Cervical Cancer Clinical Reasoning: No identified risk factors. Infection Clinical Reasoning: No identified risk factors. Pain Score: 7/10 Pain Location: Low Back/Lumbar Spine - Left Description: Tightness (kari horse) Frequency: Intermittent Post Treatment Pain Score: 6/10 Pain Location: Low Back/Lumbar Spine - Left Post Treatment Pain Description: Tightness;Radiating OBJECTIVE MEASURES WITH LEVEL OF FUNCTION: Posture / Alignment Posture: Forward head;Elevated shoulder - right;Hip asymmetry Hip asymmetry comment: slightly shifted to L Spine Palpation L Lumbar Spine Palpation Tenderness: Sacroiliac joint Sensation - Lumbar Sensation: Grossly Intact Lumbar Spine AROM Lumbar Flexion: Normal Lumbar Extension: Minimal limitation Lumbar R Side-Bend: Normal Lumbar L Side-Bend: Minimal limitation (pain R) Repeated Test Movements - Lumbar RFIS - Symptoms During: produces RFIS - Symptoms After: worse;peripheralized BASILIO - Symptoms During: no effect BASILOI - Symptoms After: peripheralized;worse RFIL - Symptoms During: no effect;decreases RFIL - Symptoms After: centralized;better REIL - Symptoms During: increases REIL - Symptoms After: peripheralized;worse Static Testing - Lumbar Sit Slouched: worse Sit Erect: no effect Lying Prone In Extension: worse LE AROM R LE AROM: WNL L LE AROM: WNL LE Strength Trunk Strength: 4/5 R LE Strength: 5/5 L LE Strength: 5/5 Special Tests - Hip and Spine Hip and Spine Special Tests: Slump Test;LIDIA Test;SLR Test LIDIA Test: Right Negative;Left Negative Slump Test: Left Positive SLR Test: Left Positive Education: Education Learning Preferences: Demonstration;Explanation;Printed Materials Barriers: None Learning/educational needs: Home exercise program;Posture;Apparatus Operator Education Provided: Yes, see treatment interventions for education provided Education Provided To: Patient Education Mode/Type: Explanation/Discussion;Demonstration Response to Education/Teach Back: States/Identifies TREATMENT: Evaluation Therapeutic Exercise: 1: *supine SKTC 10 x Skilled Intervention: Patient was educated in proper exercise technique and purpose for exercises. Reviewed and educated patient on additions/changes for home exercise program as above (*) Skilled judgment was provided in selection of appropriate interventions. Correct performance of therapeutic exercises was facilitated with verbal cuing. Evaluation - Low Complexity (77014) Therapeutic Exercise ([id number]): 1:1 time: 15 minutes (1 unit: 8-22 mins) Total Time: 45 min Reyna Ayala PT CNTHERAPY Observed: 03/04/2018 Status: COMPLETED Source: [place] 9:15 AM [facility] REPOSITORY OT/PT/Speech Visit (LDPT) BERNARDO LIZ ([id number]) 1985 F Date Time Provider Department 03/04/18 9:15 AM REYNA AYALA (PT) LDPT Date Time Provider Department Center 03/04/2018 9:15 AM [id number], CHRISTI *LDPT [facility] [address] Reason for Visit: PT Eval [747] Visit Diagnoses:Posture abnormality [R29.3] Acute left-sided low back pain with left-sided sciatica [M54.42] Allergies As of Date: 03/04/2018 (No Known Allergies) Date Reviewed: 03/04/2018 Reviewed by: Reyna (Pt) AKANKSHA Ayala - Fully Assessed Prescriptions as of 03/04/2018 Sig: CYCLOBENZAPRINE 10 MG TABLET Take 1 tablet by mouth three * NAPROXEN 500 MG TABLET Take 1 tablet by mouth twice * Progress Notes: Reyna Ayala PT, PT 03/04/2018 1:03 PM Signed Episode Visit Count: 1 Therapist That Will Oversee The Plan Of Care: Yas Cisse Start of Care Date: 03/04/18 Onset Date: 10/22/17 Plan of Care Certification Date: 03/04/18 Patient Identified by Name and Date of : Yes REHABILITATION AND SPORTS THERAPY PHYSICAL THERAPY EVALUATION PLAN OF CARE: Assessment: Bernardoerasmo Liz presents with the chief complaint of low back pain with left lower extremity tingiling and numbness. Symptoms began about 4-5 months ago 3 months after of 3rd child delivered by . Patient reports brief episode in 2016 that resolved with anti inflammatory medication. She is otherwise healthy without significant medical issues. She presents with impairments of low back pain with left lower extremity tingling that is aggrevated with prolonged sitting and standing. Symptoms radiate to 4th and 5th digit of left lower extremity. She may benefit from skilled therapy services to improve current symptoms. Low Back Pain Subgroup Classification Low Back Pain Subgroup Classification: Specific exercise subgroup: recommended visits 8. Specific Exercies Subgroup Classification based on: directional preference Prognosis: Good Good due to: current objective clinical presentation;positive past response to therapy Goals for Episode of Care: created on 03/04/18 through 04/15/18 Independent in home exercises. 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 Sleep through night without pain/symptoms. Sit for greater than 1-2 hours without pain/symptoms to allow for completion of daily tasks and driving tasks. Maintain proper sitting posture throughout session Improve Modified Oswestry Pain Questionnaire (LBP) by 6 points (12%) to indicate a Minimal Clinical Important Difference. Initial score 11/50. Abolish radicular symptoms. Planned Interventions, Frequency, and Duration: Current Frequency: 2x/week Duration: 6 weeks Total Number of Visits Planned: 8 Patient to be see for Planned Treatment Interventions: Therapeutic exercise;Neuromuscular re-education;Manual therapy;Therapeutic activities;Self-mcfp management;Patient/Family/Caregiver Education PLAN FOR NEXT VISIT: Assess response to flexion, continue with directional preference treatment and begin core strengthening, consider SI joint if symptoms continue Patient demonstrates good understanding of plan of care and treatment. The above goals and plan of care were discussed and agreed upon by patient/family. SUBJECTIVE: Bernardo Liz is a 32 year old female seen today for L sided low back pain Functional Limitations: sitting;standing;walking in the community Prior Level of Function: Independent without limitations Patient Goals: painfree, feel my leg again Intake Information: Prescription present Previous Treatment: Muscle relaxer?;NSAIDs? 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 Cancer Clinical Reasoning: No identified risk factors. Infection Clinical Reasoning: No identified risk factors. Cauda Equina Syndrome Clinical Reasoning: No identified risk factors. Red Flags - Cervical Cancer Clinical Reasoning: No identified risk factors. Infection Clinical Reasoning: No identified risk factors. Pain Score: 7/10 Pain Location: Low Back/Lumbar Spine - Left Description: Tightness (kari horse) Frequency: Intermittent Post Treatment Pain Score: 6/10 Pain Location: Low Back/Lumbar Spine - Left Post Treatment Pain Description: Tightness;Radiating OBJECTIVE MEASURES WITH LEVEL OF FUNCTION: Posture / Alignment Posture: Forward head;Elevated shoulder - right;Hip asymmetry Hip asymmetry comment: slightly shifted to L Spine Palpation L Lumbar Spine Palpation Tenderness: Sacroiliac joint Sensation - Lumbar Sensation: Grossly Intact Lumbar Spine AROM Lumbar Flexion: Normal Lumbar Extension: Minimal limitation Lumbar R Side-Bend: Normal Lumbar L Side-Bend: Minimal limitation (pain R) Repeated Test Movements - Lumbar RFIS - Symptoms During: produces RFIS - Symptoms After: worse;peripheralized BASILIO - Symptoms During: no effect BASILIO - Symptoms After: peripheralized;worse RFIL - Symptoms During: no effect;decreases RFIL - Symptoms After: centralized;better REIL - Symptoms During: increases REIL - Symptoms After: peripheralized;worse Static Testing - Lumbar Sit Slouched: worse Sit Erect: no effect Lying Prone In Extension: worse LE AROM R LE AROM: WNL L LE AROM: WNL LE Strength Trunk Strength: 4/5 R LE Strength: 5/5 L LE Strength: 5/5 Special Tests - Hip and Spine Hip and Spine Special Tests: Slump Test;LIDIA Test;SLR Test LIDIA Test: Right Negative;Left Negative Slump Test: Left Positive SLR Test: Left Positive Education: Education Learning Preferences: Demonstration;Explanation;Printed Materials Barriers: None Learning/educational needs: Home exercise program;Posture;Apparatus Operator Education Provided: Yes, see treatment interventions for education provided Education Provided To: Patient Education Mode/Type: Explanation/Discussion;Demonstration Response to Education/Teach Back: States/Identifies TREATMENT: Evaluation Therapeutic Exercise: 1: *supine SKTC 10 x Skilled Intervention: Patient was educated in proper exercise technique and purpose for exercises. Reviewed and educated patient on additions/changes for home exercise program as above (*) Skilled judgment was provided in selection of appropriate interventions. Correct performance of therapeutic exercises was facilitated with verbal cuing. Evaluation - Low Complexity (32996) Therapeutic Exercise ([id number]): 1:1 time: 15 minutes (1 unit: 8-22 mins) Total Time: 45 min Reyna Ayala PT COMPREHENSIVE PANEL Collected: 03/01/2018 Status: F Source: [facility] 8:11 AM [facility] REPOSITORY TYPE CODE TESTS RESULT OUT OF REFERENCE UNITS RANGE LAB LOOPING INSPECTOR(LOINC) 136-145 mEq/L Sodium Blood 139 LAB LK(LOINC) 3.5-5.1 mEq/L Potassium Blood 4.1 LAB LCL(LOINC) 98-107 mEq/L Chloride High Blood 108 LAB LCO2(LOINC 21-32 mEq/L ) CO2 Blood 24 LAB LGLU(LOINC 70-99 mg/dL ) Glucose Blood 97 LAB LBUN(LOINC 7-25 mg/dL ) BUN Blood 7 LAB LCREA(LOIN 0.51-0.95 mg/dL C) Creatinine Blood 0.69 LAB LCA(LOINC) 8.5-10.1 mg/dL Calcium Blood 9.2 LAB LALB(LOINC 3.4-5.0 g/dL ) Albumin Blood 3.8 LAB LTP(LOINC) 6.4-8.2 g/dL Total Protein 7.4 LAB LAST(LOINC 15-37 U/L ) Low AST-SGOT Blood 13 LAB LALT(LOINC 14-63 U/L ) ALT-SGPT Blood 18 LAB LALKP(LOIN 46-116 U/L C) Alk Phosphatase 67 LAB LBILT(LOIN 0.2-1.0 mg/dL C) Total Bilirubin 0.4 LAB LANGP(LOIN 8-20 C) Anion Gap 12 LAB LBNCR(LOIN 10-20 C) BUN/Creatinine 10 Ratio Performed By: #### LP14 #### [place] [id number] LIPID PROFILE Collected: 03/01/2018 Status: F Source: [facility] 8:11 AM HEALTH SYSTEM REPOSITORY TYPE CODE TESTS RESULT OUT OF REFERENCE UNITS RANGE LAB LCHOL(LOIN 0-199 mg/dL C) Cholesterol Blood 184 LAB LTRIG(LOIN 0-149 mg/dL C) Triglyceride Blood 73 LAB LHDL2(LOIN >40 mg/dL C) HDL Cholesterol 46 LAB LLDL(LOINC 0-150 mg/dL ) LDL 123 LAB LCHHD(LOIN 1.8-5.3 C) CHOL/HDL 4.0 LAB LRISK(LOIN C) Risk Factor 4.0 Result Comment: Cardiac Risk Factor The CHD risk factor is based on the total Chol/HDL ratio. Other factors affect CHD risk such as hypertension, smoking, diabetes, severe obesity and premature CHD. Cardiac Risk Total Chol/HDL ratio Men Women 1/2 avg risk 3.4-4.9 3.3-6.3 Avg risk 5.0-9.5 6.4-7.0 2x avg risk 9.6-23.3 7.1-10.9 3x avg risk >23.4 >11.0 Performed By: #### LLIPD #### [place] [address] TSH Collected: 03/01/2018 Status: F Source: [facility] 8:11 AM [facility]ALTH SYSTEM REPOSITORY TYPE CODE TESTS RESULT OUT OF RANGE REFERENCE UNITS LAB LTSH(LOINC) 0.34-4.82 uIU/mL TSH 0.40 Performed By: #### LTSH #### [place] [address] MDRD EGFR Collected: 03/01/2018 Status: F Source: [facility] 8:11 AM [facility]ALTH SYSTEM REPOSITORY TYPE CODE TESTS RESULT OUT OF RANGE REFERENCE UNITS LAB LGFRF(LOINC >60mL/min/1.73m ) 2 eGFR >60 Result Comment: If the patient is , multiply the result by 1.210. Performed By: #### LGFR #### [facility] [address] [place] [address] HEMOGRAM/MANUAL DIFF Collected: 03/01/2018 Status: F Source: [place] 8:11 AM [facility] REPOSITORY TYPE CODE TESTS RESULT OUT OF REFERENCE UNITS RANGE LAB LWBC(LOINC 4.8-10.8 thou/cmm ) WBC 8.6 LAB LRBC(LOINC 4.20-5.40 mil/cmm ) RBC 4.55 LAB LHGB(LOINC 12.0-16.0 g/dL ) Hgb 13.1 LAB LHCT(LOINC 37.0-47.0 % ) Hct 39.5 LAB LMCV(LOINC 81.0-99.0 fl ) MCV 86.8 LAB LMCH(LOINC 27.0-31.0 pg ) MCH 28.8 LAB LMCHC(LOIN 32.0-36.0 % C) MCHC 33.2 LAB LRDW(LOINC 11.5-15.9 % ) RDW High 19.8 LAB LPLT(LOINC 150-400 thou/cmm ) Platelet 361 LAB LMPV(LOINC 7.1-10.5 fl ) MPV 10.0 LAB LDTYP(LOIN C) Diff Type Manual Diff LAB LSEGT(LOIN % C) Seg Neutrophil 53.8 LAB LLYMP(LOIN % C) Lymphocyte 33.1 LAB LMNO(LOINC % ) Monocyte 9.7 LAB CHAPIS(LOINC % ) Eosinophil 2.7 LAB LBASO(LOIN % C) Basophil 0.7 LAB LSEGN(LOIN 3.00-5.67 thou/cmm C) Abs. Neut 4.63 LAB LLYMN(LOIN 1.50-3.65 thou/cmm C) Abs. Lymph 2.85 LAB LMONN(LOIN 0.20-1.00 thou/cmm C) Abs. [place] 0.83 LAB LEOSN(LOIN 0.00-0.41 thou/cmm C) Abs. Eosin 0.23 LAB LBASN(LOIN 0.00-0.08 thou/cmm C) Abs. Baso 0.06 LAB LPLES(LOIN C) Platelet Estimate Normal LAB LANIS(LOIN C) Anisocytosis Few Performed By: #### LMCBD #### [facility] [address] [place], [place] [address] SED RATE Collected: 03/01/2018 Status: F Source: [facility] 8:11 AM [facility] SYSTEM REPOSITORY TYPE CODE TESTS RESULT OUT OF RANGE REFERENCE UNITS LAB LESR(LOINC) 0-20 mm/hr Sed Rate 5 Performed By: #### LESR #### [facility] [address] [address] CRP Collected: 03/01/2018 Status: F Source: [facility] 8:11 AM [facility] REPOSITORY TYPE CODE TESTS RESULT OUT OF RANGE REFERENCE UNITS LAB CRP3(LOINC) 0.00-0.30 mg/dL CRP < 0.29 Performed By: #### CRP3 #### [facility] [address] [place] [address] CNPN Observed: 02/28/2018 Status: COMPLETED Source: [place] 12:00 AM [facility] REPOSITORY Telephone ([place]NET[place]AMPPAULETTE) BERNARDO LIZ ([id number]) 1985 F Date Time Provider Department 02/28/18 BHARTI AVITIA) ARDEN During your visit today, we recorded the following information about you: Yany Doll ([facility]) 02/28/2018 8:45 AM Signed ----- Message from Bharit Avitia sent at 02/28/2018 8:04 AM EDT ----- Normal lumbar and hip x-rays. Continue on to PT. Bharti Avitia, KHUSHBOO.Yany Orta ([facility]) 02/28/2018 8:47 AM Signed Spoke with patient and discussed normal results. She states the numbness is worse than before and is now in her right foot. She had to take off work today d/t unable to walk well. Can she have a note off work today? Encouraged physical therapy. She is going to get set up today. ROMY Jarrett Kristin C ([facility]) 02/28/2018 9:19 AM Addendum Yes, see letter. Also since her symptoms are getting worse I would like her to see a specialist, see referral for Dr. Albert. Thank you. Bhatri Avitia APRN.Alessia De Jesus 02/28/2018 3:45 PM Signed Submitted on [facility] Portal Confirmation # [id number] ChaparroAlessia Crow 03/04/2018 2:34 PM Signed Per [facility] portal Dr. Albert does not take [facility] insurance, would you like to chose different specialist? Please advise. ChaparroBharti Bhakta ([facility]) 03/04/2018 2:46 PM Signed Yes can we try Dr. Amos Liz with [facility] ortho. Thank you. Bharti Avitia APRN.Alessia De Jesus 03/09/2018 10:20 AM Signed Submitted new referral on [facility] portal Confirmation # [id number] ChaparroAlessia Crow 03/09/2018 1:57 PM Signed Amos Liz is not a neurosurgeon, he is an orthopaedic. We will send to [facility] Neurosurgery as this is what the order states. Crys Alessia Stanton 03/15/2018 2:47 PM Signed Per [facility] portal, patient would need and MRI or CT before they will schedule appt @[facility] neuroscience. Crys Bharti Keyes ([facility]) 03/15/2018 5:18 PM Signed Okay, she has appointment set up with Dr. Garcia on 03/29/18. We will need documentation of her progress - she is in PT right now, on NSAIDs - naproxen. I don't want to order the MRI right now because I am sure insurance will deny it. We can try ordering the MRI at the 4 week period but insurance may require 6 weeks of PT/NSAIDs. Thank you. Bharti Avitia APRN.Alessia De Jesus 03/16/2018 8:50 AM Signed Noted. Will wait to process prior auth for MRI. Crys Darnellin Allergies As of Date: 02/28/2018 (No Known Allergies) Date Reviewed: 02/25/2018 Reviewed by: Jahaira Bentley - Fully Assessed Reason for Visit: Initial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
== END 2018-10-06 16:51 | disposition home or self-care (01) ==
LOC: SDC 10:34 → AC 10:34
PROVIDERS: Anesthesiology; Family Provider Nurse Practitioner Family; PCP Nurse Practitioner Family; Referring Provider Obstetrics & Gynecology; Visit Provider Obstetrics & Gynecology
PROC: (CPT 58661; principal; 2018-10-06 11:45)
PROC: 0UDB8ZZ Extraction of Endometrium, Via Natural or Artificial Opening Endoscopic (ICD-10-PCS; CPT 58558; 2018-10-06 11:45)
DX: Z30.2 Encounter for sterilization (principal); Z87.891 Personal history of nicotine dependence; N92.6 Irregular menstruation, unspecified; N71.1 Chronic inflammatory disease of uterus; Z30.432 Encounter for removal of intrauterine contraceptive device; N84.0 Polyp of corpus uteri
CPT/HCPCS: 00851; 58301; 58558; 58671; 36415; 80076; 81025; 84443; 84703; 85027; 85610; 85730; 86850; 86900; 88302; 88305; J7120; C1760; J2405

== ENCOUNTER 2021-11-22 00:45 | Emergency (ER) | payer MEDICAID, SELFPAY ==
[2021-11-22 00:46] VITALS: BP 127/80; PULSE 98; RESP 16; TEMP 36.8; O2SAT 99; BMI 24.6
--- NOTE | 2021-11-22 01:36 | EX.ED.DYSGE1 ---
HPI History of Present Illness Chief Complaint: Dental Narrative Narrative: Patient is a 36-year-old female who states that she has noticed increasing swelling to the right side of her face over the past 2 to 3 days. She denies any trauma prior to the symptoms beginning and she denies any fevers chills or difficulty breathing/swallowing. She states she is concerned she has a dental infection and is scheduled to see the dentist in the next week but based on her symptoms feel she may need an antibiotic and therefore comes in for evaluation. PFSH PFSH Medical History no medical history Home Medications clindamycin HCl [Cleocin HCl] 300 mg PO Q6H #40 cap 11/22/21 [Rx Last Taken Unknown] Allergy/AdvReac Type Severity Reaction Status Date / Time No Known Allergies Allergy Verified 11/22/21 00:49 Social History (Updated 02/23/21 @ 13:45 by Todd Felix NP, [facility]) Smoking Status: Never smoker alcohol intake: current alcohol intake frequency: holidays/special occasions only ROS ROS ED Constitutional Constitutional ED: Denies chills or fever(s) ENT ENT ED: Reports other Details: Positive dental pain ; Denies sore throat Cardiovascular Cardiovascular: Denies chest pain Respiratory/Chest Respiratory/Chest: Denies cough or dyspnea Gastrointestinal Gastrointestinal: Denies abdominal pain, diarrhea, nausea or vomiting Genitourinary Genitourinary ED: Denies dysuria Musculoskeletal Musculoskeletal: Denies myalgias Integumentary Denies rash Neurologic Neurologic: Denies headache(s) Hematologic/Lymphatic Hematologic/Lymphatic: Denies easy bleeding or easy bruising EXAM Physical Exam Const Vital Signs: 11/22/21 00:46 11/22/21 02:01 Temperature 98.3 F Temperature Source Temporal Pulse Rate 98 72 Respiratory Rate 16 16 Blood Pressure 127/80 H Blood Pressure Mean 95 Pulse Ox 99 Oxygen Delivery Method Room Air Positive well nourished and well developed General Appearance ED: well developed HEENT Reports moist mucous membranes HEENT Narrative: Patient has soft tissue swelling to the right upper cheek region. There are dental caries noted as well. There is fluctuance along the right incisor portion of the gingiva concerning for dental abscess. Otherwise no oral lesions no airway edema or compromise. Eyes PERRL and EOMs intact bilaterally Neck supple Neck Narrative: Positive anterior cervical lymphadenopathy. No brawny edema in the submental space to suggest Maico's angina Resp normal respiratory effort and clear to auscultation bilaterally Cardio regular rate and regular rhythm Extremity normal to inspection Neuro oriented x3 and CN's II-XII intact bilaterally Sensorium / Orientation: alert Psych mental status grossly normal Skin Skin Narrative: Soft tissue swelling to the right upper cheek region as documented above without obvious cellulitis changes noted MDM MDM MDM Narrative Medical decision making narrative: Patient presented to the ER afebrile and in no acute respiratory distress. She had no signs of Maico's angina either. Her exam and history is consistent with a upper dental abscess. We discussed performing incision and drainage at this time to resolve her infection. The patient states that she does not want that performed and will wait to see the dentist for this procedure. Therefore I will place her on clindamycin secondary to the infection and patient will be discharged Discharge Plan Triage Chief Complaint: Dental ED Provider: Demarcus Maria Dx/Rx/DC Orders Clinical Impression: Abscess, dental Instructions: Dental Abscess Prescriptions: New clindamycin HCl [Cleocin HCl] 300 mg capsule 300 mg PO Q6H Qty: 40 RF: 0 Primary Care Provider: Alma Perez NP Referrals: Alma Perez NP, [facility] [Primary Care Provider] - Disposition Disposition: Home, Self Care Discharge Date/Time: 11/22/21 02:03
[2021-11-22] MEDS: Clindamycin HCl 150 MG Capsule 300 MG PO (02:00)
[2021-11-22 02:01] VITALS: PULSE 72; RESP 16
== END 2021-11-22 02:03 | disposition home or self-care (01) ==
PROVIDERS: Emergency Provider Emergency Medicine; PCP Nurse Practitioner Family; Visit Provider Emergency Medicine
DX: K04.7 Periapical abscess without sinus (principal)
CPT/HCPCS: 99283